=== PATIENT | female | born 1960 | race Caucasian/White ===

== ENCOUNTER → 2018-10-27 | Day surgery (SDC) | payer OTHER ==
[2018-10-25 14:52] VITALS: BMI 29.9
[~2018-10-27] MED LIST: LACTATED RINGERS 1,000 ML IV SCH; LIDOCAINE 1% 20 ML VIAL (10MG/ML) FOR IV START INTRADERMA PRN; MIDAZOLAM 2 MG/2 ML VIAL ONE; PROPOFOL 10 MG/ML 20 ML VIAL IV ONE; fentaNYL (PF) 50 MCG/ML 2 ML AMP ONE
[2018-10-27 10:17] VITALS: TEMP 98
--- NOTE | 2018-10-27 10:49 | P.PCN ---
Date of Procedure: 10/27/18 Procedure(s) Performed: BRIEF HISTORY: Patient is a 57-year-old pleasant white female scheduled for an elective colonoscopy as a part of value should of intermittent rectal bleeding for the last 1 month duration. PROCEDURE PERFORMED: Colonoscopy With biopsy PREOPERATIVE DIAGNOSIS: intermittent rectal bleeding for 1 month durationIV sedation per Anesthesia. PROCEDURE: After informed consent was obtained, the patient, was brought into the endoscopy unit. IV sedation was administered by Anesthesia under continuous monitoring. Digital rectal examination was normal. Initially the Olympus CF- 160 flexible video colonoscope was then inserted in the rectum, gradually advanced into the cecum without any difficulty. Careful examination was performed as the scope was gradually being withdrawn. Ileocecal valve and the appendiceal orifice were visualized and appeared normal. Prep was excellent. Mucosa of the cecum, ascending colon, transverse colon, descending colon, sigmoid colon, appeared normal. In the proximal rectum at 12 cm from the anal verge there was a semicircumferential ulcerated mass identified and multiple biopsies were done from this area. Retroflexion was performed in the rectum and no lesions were seen. The patient tolerated the procedure well. IMPRESSION: Semicircumferential ulcerated mass in the proximal rectum at 12 cm from the anal verge status post multiple biopsies Scattered sigmoid diverticulosis RECOMMENDATIONS: Findings of this examination were discussed with the patient as well as a family. She was advised to follow with the biopsy results. She'll be scheduled for CT of the abdomen and pelvis and she'll be seen in the office in 3 -4 days.
[2018-10-27 11:29] VITALS: BP 120/81; PULSE 76; RESP 18
== END ==
LOC: ORWHC2ENDO 09:22
PROVIDERS: ATTEND Internal Medicine Gastroenterology
DX: C20 Malignant neoplasm of rectum (principal); K57.30 Diverticulosis of large intestine without perforation or abscess without bleeding; F32.9 Major depressive disorder, single episode, unspecified; G89.29 Other chronic pain; F17.200 Nicotine dependence, unspecified, uncomplicated; Z79.899 Other long term (current) drug therapy; Z88.2 Allergy status to sulfonamides; Z91.040 Latex allergy status
CPT/HCPCS: 88305; 45380; J2250; J3010; J2704

== ENCOUNTER → 2018-10-30 | Outpatient (CLI) | payer OTHER ==
--- NOTE | 2018-11-01 10:46 | PE ---
Nuclear medicine PET/CT HISTORY: Colorectal carcinoma, malignant tumor rectum, initial Patient received 12.4 mCi F-18 FDG intravenously on protocol, delayed scanning performed from the [facility] base to the mid thighs. Localization and attenuation correction CT scan was also performed. No comparisons Neck and CHEST: There is no evident adenopathy. There is a focus of hypermetabolic uptake within the left parotid gland approximately 1 cm in short axis, SUV value is 6.6. There is a prevascular node in the mediastinum present with a 6 short axis measurement of 8 mm. Retrocaval pretracheal node shows a cyst or axis measurement of 9 mm. No suspicious hypermetabolic uptake. Left upper lobe lung nodule s hows associated hypermetabolic uptake, SUV is 2.4, lesion measures only approximately 9 mm in greates t dimension. Subcentimeter subpleural density on axial image 73 right upper lobe laterally is indeter minate. No pleural or pericardial effusion. Within the posterior aspect of the liver right lobe inferiorly there is a focus of hypermetabolic upt puma, SUV is 10.4. Within the rectosigmoid colon there is a soft tissue mass, there is associated hype rmetabolic uptake, SUV is 26. No evident adenopathy. No ascites. Osseous structures are within normal limits. IMPRESSION: Findings compatible with patient's history of colorectal carcinoma. Findings may represen t metastatic disease to the liver. Indeterminate left salivary gland mass. Indeterminate pulmonary no dule shows increased uptake.
== END ==
LOC: RADPETMAIN 16:20
PROVIDERS: ATTEND Internal Medicine Gastroenterology
DX: C20 Malignant neoplasm of rectum (principal)
CPT/HCPCS: 78815; A9552

== ENCOUNTER → 2018-11-03 | Outpatient (CLI) | payer OTHER ==
--- NOTE | 2018-11-04 12:07 | MR ---
MR liver with and without contrast HISTORY: Malignant neoplasm of rectum, abnormal PET/CT Multiplanar multisequence and postcontrast images through liver following 10 cc Gadavist IV Relation nuclear medicine PET/CT 10/30/2018 Focus of abnormal activity seen within the right lobe of the liver on PET CT shows corresponding abno rmal signal inferiorly within the right lobe, peripheral enhancement is present following contrast ad ministration with central low signal possibly due to necrosis. The lesion measures approximately 3.2 x 2.8 x 2.3 cm. No additional lesions are identified. There is no evident adenopathy. No ascites. Olga g bases are clear. Aorta shows normal caliber. Visualized portions of the kidneys and adrenal glands, pancreas and splee n are unremarkable. Gallbladder shows no stone. IMPRESSION: Findings may represent metastatic focus within the right lobe of the liver. The lesion wo uld be amenable to percutaneous biopsy.
== END | disposition home or self-care (01) ==
LOC: RADMRIMAIN 20:41
PROVIDERS: ATTEND Internal Medicine Hematology & Oncology
DX: C20 Malignant neoplasm of rectum (principal)
CPT/HCPCS: 74183; A9585

== ENCOUNTER → 2018-11-05 | Outpatient (CLI) | payer OTHER ==
--- NOTE | 2018-11-07 05:59 | MR ---
MR scan of the pelvis. History rectal cancer. Comparison none. TECHNIQUE: Multiplanar multiecho imaging of the pelvis was performed without and subsequently with intravenous c ontrast. The contrast was gadolinium 8.5 mL. FINDINGS: There is a 5.6 x 3.5 x 3.4 cm enhancing mass involving the colon in the posterior pelvis at the recto sigmoid junction. Mass is somewhat circumferential. The contrast images show numerous perirectal enla rged lymph nodes with enhancement. These measure up to 12 x 9 mm. There is no free fluid in the pelvi s. Bladder distends smoothly. Uterus is anteverted. I see no bowel obstruction. Uterus is retroverted. I see no bony destructive process. There is no ing uinal hernia or adenopathy. IMPRESSION: Large mass at the rectosigmoid junction consistent with primary tumor. Numerous enlarged perirectal l ymph nodes with enhancement suggestive of metastatic disease.
== END ==
LOC: RADMRIMAIN 20:01
PROVIDERS: ATTEND Internal Medicine Hematology & Oncology
DX: C20 Malignant neoplasm of rectum (principal)
CPT/HCPCS: 72197; A9585

== ENCOUNTER 2018-11-09 09:04 | Day surgery (SDC) | payer OTHER ==
[2018-11-09 09:37] VITALS: RESP 16; TEMP 98.1
[2018-11-09 09:37] LABS: Mean Platelet Volume 6.6; Platelet Count 347 k/uL (150-450)
[2018-11-09] MEDS ORDERED: ALPRAZolam 0.5 MG TAB PO STA (09:37)
[2018-11-09 09:45] LABS: Prothrombin Time 10.5 sec (9.0-12.0)
[2018-11-09] MEDS ORDERED: HYDROmorphone 1 MG/ML 1 ML SYRINGE IVP STA (09:54)
[2018-11-09 12:11] VITALS: PULSE 78
--- NOTE | 2018-11-09 12:13 | US ---
EXAMINATION TYPE: US biopsy liver DATE OF EXAM: 11/09/2018 COMPARISON: NONE HISTORY: Hepatic mass Findings: The procedure was explained to the patient. The risks, complications, benefits, and alternatives wer e discussed and any questions were answered. Informed consent was obtained. Patient was placed late ral position on the ultrasound table and prepped and draped in the usual sterile fashion. All elements of maximal barrier and sterile technique utilized. Utilizing CT guidance, an 18 gauge core biopsy needle access into the right lobe of the liver was ac hieved and a two 18 gauge core samples were obtained. The patient was stable throughout the procedur e and remained stable upon discharge. IMPRESSION: 1. Successful 18 gauge core biopsy of the liver.
[2018-11-09 13:18] VITALS: BP 117/72
== END 2018-11-09 14:32 | disposition home or self-care (01) ==
LOC: RADPROMAIN 09:04
PROVIDERS: ATTEND Internal Medicine Hematology & Oncology
DX: C78.7 Secondary malignant neoplasm of liver and intrahepatic bile duct (principal); C20 Malignant neoplasm of rectum; Z88.2 Allergy status to sulfonamides
CPT/HCPCS: 85049; 85610; 88342; 88307; 88341; 36415; 47000; 76942; J1170

== ENCOUNTER 2018-11-26 06:33 | Day surgery (SDC) | payer OTHER ==
[2018-11-23 08:45] VITALS: BMI 30.7
[~2018-11-26 06:33] MED LIST changes: +DEXAMETHASONE SOD PHOSPHATE 10 MG/ML 1 ML VIAL IV ONE; +HEPARIN SODIUM,PORCINE 5,000 UNIT/ML 1 ML VIAL SQ ONE; -LIDOCAINE 1% 20 ML VIAL (10MG/ML) FOR IV START INTRADERMA PRN; +MIDAZOLAM 2 MG/2 ML VIAL IV PRN; -MIDAZOLAM 2 MG/2 ML VIAL ONE; +ONDANSETRON 4 MG/2 ML VIAL IVP ONE; -PROPOFOL 10 MG/ML 20 ML VIAL IV ONE; +Pre Op ABX Message 1 EACH MISC MISCELLANE ONE; +SCOPOLAMINE 1.5MG/72HR PATCH TRANSDERM ONE; -fentaNYL (PF) 50 MCG/ML 2 ML AMP ONE
[2018-11-26] MEDS ORDERED: LIDOCAINE 1% 20 ML VIAL (10MG/ML) FOR IV START INTRADERMA ONE (07:14)
[2018-11-26] MEDS ORDERED: ceFAZolin 2 GM in SODIUM CHLORIDE 0.9% 100 ML IVPB ONE (07:48)
[2018-11-26] MEDS ORDERED: HEPARIN SODIUM,PORCINE 100 UNIT/ML 5 ML VIAL IV ONE ×3 (07:57→08:38)
[2018-11-26] MEDS ORDERED: LIDOCAINE (PF) 10 MG/ML 2 ML VIAL SQ ONE ×2 (07:58→08:29)
[2018-11-26] MEDS ORDERED: ceFAZolin IN SWFI 2 GM/20 ML SYRINGE IVP ONE (08:00)
[2018-11-26] MEDS ORDERED: PROPOFOL 10 MG/ML 20 ML VIAL IV ONE (08:04)
[2018-11-26] MEDS ORDERED: MIDAZOLAM 2 MG/2 ML VIAL ONE (08:04)
[2018-11-26] MEDS ORDERED: LIDOCAINE 1% INJ 10MG/ML (20 ML MDV) ONE (08:04)
[2018-11-26] MEDS ORDERED: fentaNYL (PF) 50 MCG/ML 2 ML AMP ONE (08:04)
[2018-11-26] MEDS ORDERED: SODIUM CHLORIDE 0.9% 100 ML with ceFAZolin 2,000 MG IV ONE ×2 (08:25)
[2018-11-26] MEDS ORDERED: LIDOCAINE 1% INJ 10MG/ML (20 ML MDV) SQ ONE (08:44)
[2018-11-26] MEDS ORDERED: LACTATED RINGERS 1,000 ML IV ONE (08:49)
[2018-11-26 09:05] VITALS: TEMP 98.1
[2018-11-26] MEDS: HYDROmorphone 0.5 MG/0.5 ML SYRINGE IVP PRN ×2 (09:20→09:26)
[2018-11-26] MEDS ORDERED: HYDROcodone/APAP 5-325MG 1 EACH TAB PO PRN (09:30)
[2018-11-26] MEDS ORDERED: NALOXONE 0.4 MG/ML 1 ML VIAL IV PRN (09:30)
--- NOTE | 2018-11-26 09:36 | P.OP ---
Date of Procedure: 11/26/18 Procedure(s) Performed: PREOPERATIVE DIAGNOSIS: Rectal cancer POSTOPERATIVE DIAGNOSIS: Same PROCEDURE: Port-A-Cath placement SURGEON: Stacia EBL: Minimal ANESTHESIA: gen COMPLICATIONS: None OPERATIVE PROCEDURE: Patient was brought and placed on the operative table in the supine position. The patient was sedated per anesthesia that time. The chest and neck were prepped and draped in usual sterile fashion. The ultrasound probe was used to identify the location of the right internal jugular vein. The skin was localized with lidocaine. The Seldinger needle was advanced into the IJ under ultrasound guidance. The wire was advanced through the needle under fluoroscopic guidance into the superior vena cava. A port pocket was created in the right infraclavicular location. The catheter was tunneled from the wire entrance site to the port pocket. The port was then connected to the catheter. The dilator introducer was threaded over the guidewire. The guidewire and dilator were then removed. The catheter was advanced through the introducer and introducer was then removed. The tip was seen to be in the right atrial junction. Port was flushed with both saline and a Hep-Lock solution. There was good flow both in and out of the port. The port was sutured in underlying tissues using 3-0 silk sutures. The subcutaneous tissues were reapproximated using 3-0 Vicryl sutures and the skin at both locations using 4-0 Monocryl sutures. Skin glue and sterile dressings then applied. DISPOSITION: Stable to recovery room
--- NOTE | 2018-11-26 10:06 | XR ---
EXAMINATION TYPE: XR chest 1V portable DATE OF EXAM: 11/26/2018 COMPARISON: NONE HISTORY: Line placement, Rectal carcinoma TECHNIQUE: Single frontal view of the chest is obtained. FINDINGS: Right-sided Port-A-Cath is present via jugular approach the central catheter courses to th e level of the cavoatrial junction. Patchy basilar atelectatic changes are present. No evident pneumo thorax. IMPRESSION: No evident complication status post central venous catheter placement
[2018-11-26 10:08] VITALS: RESP 20
--- NOTE | 2018-11-26 10:29 | FL ---
Fluoroscopy HISTORY: Port-A-Cath insertion 3 seconds fluoroscopy time supplied to the referring clinician. 1 intraoperative C-arm images docume nt the procedure. See dictated report from general surgery.
[2018-11-26 10:54] VITALS: BP 115/76; PULSE 77
== END 2018-11-26 11:10 | disposition home or self-care (01) ==
LOC: OR 06:33
PROVIDERS: ATTEND Surgery
DX: C20 Malignant neoplasm of rectum (principal); F17.210 Nicotine dependence, cigarettes, uncomplicated; Z87.19 Personal history of other diseases of the digestive system; Z79.899 Other long term (current) drug therapy; Z88.2 Allergy status to sulfonamides; Z91.040 Latex allergy status
CPT/HCPCS: 77001; 71045; 36561; C1788; J2250; J1644; J1642; J1100; J2405; J2001; J3010; J0690; J2704; J1170

== ENCOUNTER → 2019-01-18 | Outpatient (CLI) | payer OTHER ==
--- NOTE | 2019-01-19 08:03 | MR ---
EXAMINATION TYPE: MR liver wo/w con DATE OF EXAM: 01/18/2019 COMPARISON: MRI liver November 03, 2018. HISTORY: Rectal ca, liver metastatic lesion, F/U to chemo CONTRAST: Standard multiplanar, multisequence MRI departmental protocol utilizing 7.5 mL intravenous Gadavist g adolinium contrast. FINDINGS: Liver: There is marked interval improvement or diminished size of posterior segment right hepatic lob e rim-enhancing Couinaud segment 6 mass consistent with positive treatment response, now measuring 1. 5 cm long axis postcontrast series 801 image 179 versus roughly 3.3 cm long axis prior study image 18 6 series 801. No new suspicious solid or cystic masses are evident. Liver remains normal in size. Other: Lung bases remain clear. Debris filled stomach is noted. Gallbladder, pancreas, and spleen are normal in size. Slight thickening to the left adrenal gland is consistent with benign hyperplasia as there is signal dropout. Persistent 1.0 cm simple appearing cyst medially midpole of the left kidney coronal image 29. No suspicious small or large bowel dilatation. No abdominal ascites. No suspicious abdominal adenopathy. Visualized osseous structures are intact. IMPRESSION: Positive partial treatment response to single hepatic metastatic focus. No new masses are evident.
== END | disposition home or self-care (01) ==
LOC: RADMRIMAIN 16:15
PROVIDERS: ATTEND Internal Medicine Hematology & Oncology
DX: C20 Malignant neoplasm of rectum (principal); R16.0 Hepatomegaly, not elsewhere classified; C78.7 Secondary malignant neoplasm of liver and intrahepatic bile duct
CPT/HCPCS: 74183; A9585

== ENCOUNTER → 2019-02-15 | Outpatient (CLI) | payer OTHER ==
[2019-02-15 14:26] LABS: Blood Urea Nitrogen 9 mg/dL (7-17)
--- NOTE | 2019-02-15 14:59 | CT ---
EXAMINATION TYPE: CT chest w con DATE OF EXAM: 02/15/2019 COMPARISON: PET/CT October 30, 2018 HISTORY: History of rectal cancer metastatic to liver with lung nodules. CT DLP: 614 mGycm. Automated Exposure Control for Dose Reduction was Utilized. TECHNIQUE: CT scan of the thorax is performed following with IV Contrast, patient injected with 100 mL of Isovue 300. FINDINGS: LUNGS: Residual 4 x 4 mm anterior left upper lobe nodule axial image 13 improved from PET/CT. There i s 3 mm peripheral left lower lobe nodule axial image 45 likely stable from PET/CT axial image 113. No definitive new nodules or masses. No pleural effusion or pneumothorax. MEDIASTINUM: There is stable slightly enlarged paracarinal lymph node measuring 1.4 x 1.1 cm axial im age 21. Prominent but subcentimeter bilateral hilar lymph nodes are redemonstrated as well as promin ent but subcentimeter prevascular and paratracheal lymph nodes. No cardiomegaly or pericardial effusi on is seen. New right internal jugular Mediport catheter terminates in SVC. OTHER: Vague hypodense metastatic lesion liver posterior segment right hepatic lobe likely image 62me asures 6 mm felt improved from CT axial image 136 though it is less well seen on CT versus PET images . IMPRESSION: Suspect positive treatment response to cavitary left upper lobe pulmonary nodule and post erior right hepatic lobe liver lesion. No new mass or adenopathy clearly identified.
== END | disposition home or self-care (01) ==
LOC: RADPROMAIN 13:46
PROVIDERS: ATTEND Internal Medicine Hematology & Oncology
DX: C20 Malignant neoplasm of rectum (principal); R91.1 Solitary pulmonary nodule; Z03.89 Encounter for observation for other suspected diseases and conditions ruled out; Z88.2 Allergy status to sulfonamides
CPT/HCPCS: 82565; 84520; 71260; 36415; Q9967

== ENCOUNTER → 2019-06-08 | Outpatient (CLI) | payer OTHER ==
[2019-06-08 10:49] LABS: African American GFR (CKD) >90 (>60 ml/min/1.73 sqM); Blood Urea Nitrogen 10 mg/dL (7-17); Non-African American GFR(CKD) 80 (>60 ml/min/1.73 sqM)
--- NOTE | 2019-06-08 13:33 | CT ---
EXAMINATION TYPE: CT chest w con DATE OF EXAM: 06/08/2019 COMPARISON: Chest CT February 15, 2019. PET/CT October 30, 2018. HISTORY: Malignant neoplasm of rectum CT DLP: 390.3 mGycm. Automated Exposure Control for Dose Reduction was Utilized. TECHNIQUE: CT scan of the thorax is performed following with IV Contrast, patient injected with 100 mL of Isovue 300. FINDINGS: LUNGS: Fairly stable anterior 4 mm left upper lobe nodule axial image 15 comparing with most recent C T. Previously visualized 3 mm peripheral left basilar nodule is not as well-seen on current study. Th ere is linear scarring superior to this redemonstrated near the fissure. Dependent atelectasis in the lower lobes, right greater than left. No new nodules or masses. No pleural effusion or pneumothorax. Background mild emphysematous change in the upper lobes is again seen. MEDIASTINUM: There are no new greater than 1 cm hilar or mediastinal lymph nodes. Stable prominent jana rderline enlarged pericarinal lymph node axial image 21. Stable prominent borderline enlarged prevas cular lymph node axial image [address] No cardiomegaly or pericardial effusion is seen. Enlarged main pulmonary artery redemonstrated, CT findings suggestive of underlying pulmonary hypert ension. OTHER: Stable right internal jugular Mediport catheter. The vague hypodense hypermetabolic lesion pos terior right hepatic lobe on PET/CT is less well-seen on current study. No new intrahepatic lesions a re clearly evident. IMPRESSION: No significant interval change or progression from most recent chest CT. Stable small ant erior left upper lobe nodule. No new nodules are evident.
--- NOTE | 2019-06-08 16:09 | MR ---
MR abdomen with and without contrast HISTORY: Rectal carcinoma Multiplanar multisequence and postcontrast images obtained through the abdomen following 8 cc Gadavis t IV. Correlation to prior MR liver 01/18/2019 Liver signal is stable to improved, the previously identified focus of ring enhancement described in prior report has diminished in size is now subcentimeter. It no additional abnormal foci of enhanceme nt are present. Subcentimeter T2 bright foci likely represent hepatic cysts and are stable. Lung base s are clear. There is no ascites. No evident adenopathy. Adrenal glands and kidneys are stable. Probable cortical cyst noted again within left kidney. Spleen is unchanged. Aorta shows normal caliber. Gallbladder is within normal limits. Pancreas is normal. IMPRESSION: Improvement in the previously identified metastatic focus within the right lobe of the [place].
== END | disposition home or self-care (01) ==
LOC: RADMRIMAIN 10:02
PROVIDERS: ATTEND Internal Medicine Hematology & Oncology
DX: Z03.89 Encounter for observation for other suspected diseases and conditions ruled out (principal); C22.8 Malignant neoplasm of liver, primary, unspecified as to type; C20 Malignant neoplasm of rectum; R91.1 Solitary pulmonary nodule
CPT/HCPCS: 82565; 84520; 71260; 36415; 74183; A9585; Q9967

== ENCOUNTER 2019-07-23 16:24 | Inpatient (IN) | payer OTHER ==
--- NOTE | 2019-07-23 17:16 | ED ---
General Adult HPI - General Chief complaint: Skin/Abscess/Foreign Body Stated complaint: Post-op complications Time Seen by Provider: 07/23/19 16:34 Source: patient Mode of arrival: ambulatory Limitations: no limitations - History of Present Illness Initial comments: Patient is a 58-year-old female with history of rectal cancer with metastatic to the liver is presenting to emergency with a chief complaint of ileostomy malfunction. Patient reports she had an ileostomy placed [address] bledsoe. Patient the ileostomy workable worked well however 3 days ago she reports her skin at the ileostomy site was becoming more irritated. She states that in the last 3 days the intestinal contents is not draining into the bag. She states that she is supposed replace the ileostomy bags every 3 days and the last when she changed was today. Patient denies any nausea vomiting. Patient denies any night sweats fevers or chills. Patient also reports she is running out of supplies. - Related Data Home Medications Medication Instructions Recorded Confirmed Cyclobenzaprine [Flexeril] 10 mg PO HS 10/25/18 11/23/18 DULoxetine HCL [Cymbalta] 60 mg PO HS 10/25/18 11/23/18 Previous Rx's Medication Instructions Recorded Hydrocodone/Acetaminophen [[place] 1 tab PO Q6HR PRN 3 Days #5 tab 11/26/18 5-325] Allergies Allergy/AdvReac Type Severity Reaction Status Date / Time Sulfa (Sulfonamide Allergy Rash/Hives Verified 07/23/19 16:28 Antibiotics) Latex, Natural Rubber AdvReac Rash/Hives Verified 07/23/19 16:28 Review of Systems ROS Statement: Those systems with pertinent positive or pertinent negative responses have been documented in the HPI. ROS Other: All systems not noted in ROS Statement are negative. Past Medical History Past Medical History: Cancer, Fibromyalgia, Hypertension Additional Past Medical History / Comment(s): NO RX FOR HTN -" on and off high bp", CONSTIPATION/diarrhea, HAS BEEN HAVING BLOOD IN STOOL OFF AND ON FOR PAST MONTH, hx ulcer, IBS, rectal cancer and liver-recent dx, History of Any Multi-Drug Resistant Organisms: None Reported Past Surgical History: Tonsillectomy Additional Past Surgical History / Comment(s): oral surgery, colonoscopies x 6- 8, ileostomy, rectal surgery Past Anesthesia/Blood Transfusion Reactions: No Reported Reaction Past Psychological History: No Psychological Hx Reported Smoking Status: Former smoker Past Alcohol Use History: None Reported Past Drug Use History: None Reported - Past Family History Father Family Medical History: Cancer Additional Family Medical History / Comment(s): skin Mother Family Medical History: Deep Vein Thrombosis (DVT) General Exam Limitations: no limitations Course Vital Signs 07/23/19 16:24 Temperature 98.2 F Pulse Rate 107 H Respiratory 18 Rate Blood Pressure 128/87 O2 Sat by Pulse 100 Oximetry Medical Decision Making - Medical Decision Making Patient is a 58-year-old female with history of rectal cancer with metastasis to the liver is presenting to the emergency department with a chief complaint of ileostomy malfunction. Physical examination the intestinal contents a draining out of the ileostomy bag. There appears to be skin excoriations surrounding the abrasion of the ileostomy site. Patient was examined the fever chills. Dr. Márquez also examined the patient and is in agreement with the treatment plan. Patient will be admitted for further medical management and wound care. Admitting physician is Dr. Apodaca. Disposition Clinical Impression: Ileostomy dysfunction Disposition: ADMITTED IP TO THIS HOSP Condition: Stable Instructions (If sedation given, give patient instructions): Ileostomy Care (ED) Additional Instructions: Patient will be admitted Is patient prescribed a controlled substance at d/c from ED?: No Referrals: Amador Torres MD [Primary Care Provider] - 1-2 days Time of Disposition: 18:36
[2019-07-23] MEDS ORDERED: ACETAMINOPHEN TAB 325 MG TAB PO PRN (18:38)
[2019-07-23] MEDS ORDERED: NALOXONE 0.4 MG/ML 1 ML VIAL IV PRN (18:38)
[2019-07-23] MEDS ORDERED: ONDANSETRON 4 MG/2 ML VIAL IVP PRN (18:38)
[2019-07-23] MEDS ORDERED: MORPHINE SULFATE 4 MG/ML SYRINGE IV PRN (18:38)
[2019-07-23] MEDS ORDERED: IBUPROFEN 400 MG TAB PO PRN (18:38)
[2019-07-23] MEDS: SODIUM CHLORIDE 0.9% 1,000 ML IV SCH (21:29)
[2019-07-23] MEDS: LOPERAMIDE 2 MG CAP PO SCH (21:38)
[2019-07-23] MEDS: GABAPENTIN 300 MG CAP PO SCH (21:38)
[2019-07-23] MEDS: METHOCARBAMOL 500 MG TAB PO SCH (21:39)
[2019-07-24] MEDS: METHOCARBAMOL 500 MG TAB PO SCH ×4 (06:52→21:24)
[2019-07-24] MEDS: GABAPENTIN 300 MG CAP PO SCH ×4 (06:52→21:24)
[2019-07-24] MEDS: LOPERAMIDE 2 MG CAP PO SCH ×2 (06:52→21:24)
[2019-07-24] MEDS: SODIUM CHLORIDE 0.9% 1,000 ML IV SCH ×2 (08:39→21:23)
[2019-07-24] MEDS: ENOXAPARIN 40 MG/0.4 ML SYRINGE SQ SCH (14:13)
--- NOTE | 2019-07-24 17:22 | P.HPIM ---
History of Present Illness H&P Date: 07/24/19 Chief Complaint: Ileostomy bag not working well History of presenting complaint: This is a pleasant 58-year-old patient of Dr. Amador Sun. Patient has a diagnosis of rectal cancer with metastasis to liver. She has followed up with Dr. Baer the oncologist. Patient has received in the past several cycles of chemotherapy and radiation treatment. Patient recently was 10 days ago underwent a ileostomy creation at [facility]. Getting the same procedure was exposed to liver no evidence of metastasis was found. She tells me there is a questionable [address] Baer was not sure discussed with metastatic disease. Otherwise she'll return not available the same. Appetite is fair. Patient's last 3 days noticed that ileostomy was not working fine and is an area of redness around the ostomy site. She had called the surgeon at [facility] and and they told her to to come to the ER. The l nurses here were able to put the ostomy back on. It has been functioning since then. This is a area of redness from the same was concern at that is from the normal healing. Ostomy nurse is not available today. Patient is put into observation. No fever no chills. No local pain. Review of systems: GEN.: None EYES: None HEENT: None NECK: None RESPIRATORY: None CARDIOVASCULAR: None GASTROINTESTINAL: [As above GENITOURINARY: None MUSCULOSKELETAL: None LYMPHATICS: None HEMATOLOGICAL: None PSYCHIATRY: None NEUROLOGICAL: None Past medical history to include: History of hypertension or taking medications anymore, rectal cancer with metastasis to liver treated Social history: Patient smoked about half a pack a day for over 30 years. Has not smoked for last 11 days. Lives alone. Friend helps out. No alcohol. Physical examination: VITAL SIGNS: 98.2, 107, 18, 128/87, 100% room air GENERAL: BMI 31 sitting up in a chair comfortable. EYES: Pupils equal. Conjunctiva normal. HEENT: External appearance of nose and ears normal, oral cavity grossly normal. NECK: JVD not raised; masses not palpable. HEART: First and second heart sounds are normal; no edema. LUNGS: Respiratory rate normal; clear to auscultation. ABDOMEN: Soft, nontender, liver spleen not palpable, no masses palpable ileostomy bag in place. Brown stool in the back. PSYCH: Alert and oriented x3; mood and affect normal. NEUROLOGICAL: Cranial nerves grossly intact; no facial asymmetry, power and sensation grossly intact. LYMPHATICS: No lymph nodes palpable in the axilla and neck INVESTIGATIONS, reviewed in the clinical context: Patient has a picture of the ostomy site without that, dressing in her phone. Assessment: -Malfunction of the ileostomy now improved -We'll have the ostomy nurse look at the same. And decided is any element infection was is his normal healing process since the surgery. -Chronic nicotine dependence patient cigarette smoker -Obesity BMI 31 -Rectal and metastatic liver cancer patient status post chemotherapy and radiation treatment. Plan: Patient ileostomy is currently working. Ostomy nurse will be contacted from the morning. Told the patient to get in touch with the surgeon at [facility] and couldn't find a way to send her pictures in the I phoned and send it to to her surgeon.. Care was discussed in detail questions were answered home medications resumed. - Past Medical History Past Medical History: Cancer, Fibromyalgia, Hypertension Additional Past Medical History / Comment(s): NO RX FOR HTN -" on and off high bp", CONSTIPATION/diarrhea, HAS BEEN HAVING BLOOD IN STOOL OFF AND ON FOR PAST MONTH, hx ulcer, IBS, rectal cancer and liver-recent dx, History of Any Multi-Drug Resistant Organisms: None Reported Past Surgical History: Tonsillectomy Additional Past Surgical History / Comment(s): oral surgery, colonoscopies x 6- 8, ileostomy, rectal surgery Past Anesthesia/Blood Transfusion Reactions: No Reported Reaction Past Psychological History: No Psychological Hx Reported Additional Psychological History / Comment(s): denies Smoking Status: Former smoker Past Alcohol Use History: None Reported Additional Past Alcohol Use History / Comment(s): SMOKES < 1/2 PPD, SINCE AGE 13 Past Drug Use History: None Reported - Past Family History Father Family Medical History: Cancer Additional Family Medical History / Comment(s): skin Mother Family Medical History: Deep Vein Thrombosis (DVT) Medications and Allergies Home Medications Medication Instructions Recorded Confirmed Type Butalb/APAP/Caff 50-325-40Mg 1 tab PO Q8H PRN 07/23/19 07/23/19 History [Fioricet 50-325-40] Gabapentin 600 mg PO QID 07/23/19 07/23/19 History Ibuprofen [Motrin Ib] 600 mg PO Q6H PRN 07/23/19 07/23/19 History Loperamide [Imodium] 2 mg PO BID 07/23/19 07/23/19 History Methocarbamol [Robaxin] 500 mg PO QID 07/23/19 07/23/19 History Muscle Relaxer(Unknown) 1 tab PO DIRECTED 07/23/19 07/23/19 History oxyCODONE HCL [OxyIR] 5 mg PO Q4H PRN 07/23/19 07/23/19 History Allergies Allergy/AdvReac Type Severity Reaction Status Date / Time Sulfa (Sulfonamide Allergy Rash/Hives Verified 07/23/19 18:56 Antibiotics) Latex, Natural Rubber AdvReac Rash/Hives Verified 07/23/19 18:56 Physical Exam Vitals: Vital Signs Temp Pulse Pulse Resp BP BP Pulse Ox 07/24/19 08:00 98.2 F 79 16 98/62 96 07/24/19 04:00 78 16 07/24/19 03:52 98.1 F 78 16 101/57 07/23/19 23:20 16 07/23/19 19:20 16 07/23/19 19:13 90 16 130/78 98 07/23/19 16:24 98.2 F 107 H 18 128/87 100 Intake and Output 07/23/19 07/24/19 07/24/19 23:59 06:59 14:59 Intake Total Output Total Balance Intake: Oral Output: Gastric Drainage Other: Voiding Method Toilet # Voids Weight Thrombosis Risk Factor Assmnt - Choose All That Apply Each Factor Represents 1 point: Age 41-60 years, History of prior major surgery (<1month) Other Risk Factors: Yes Each Risk Factor Represents 2 Points: Major surgery Thrombosis Risk Factor Assessment Total Risk Factor Score: 4 Thrombosis Risk Factor Assessment Level: Moderate Risk
[2019-07-25] VITALS: RESP 18
[2019-07-25] MEDS: METHOCARBAMOL 500 MG TAB PO SCH (06:31)
[2019-07-25] MEDS: GABAPENTIN 300 MG CAP PO SCH (06:31)
[2019-07-25 08:03] VITALS: BP 124/66; PULSE 85; TEMP 98.1
[2019-07-25] MEDS: LOPERAMIDE 2 MG CAP PO SCH (08:43)
[2019-07-25] MEDS: ENOXAPARIN 40 MG/0.4 ML SYRINGE SQ SCH (08:43)
--- NOTE | 2019-07-25 22:37 | P.DS ---
Providers Date of admission: 07/25/19 09:53 Expected date of discharge: 07/25/19 Attending physician: Johnson Apodaca Primary care physician: Amador [facility] Course: Chief Complaint: Ileostomy bag not working well Hospital course: This is a pleasant 58-year-old patient of Dr. Amador Sun. Patient has a diagnosis of rectal cancer with metastasis to liver. She has followed up with Dr. Baer the oncologist. Patient has received in the past several cycles of chemotherapy and radiation treatment. Patient recently was 10 days ago underwent a ileostomy creation at [facility]. Getting the same proc edure was exposed to liver no evidence of metastasis was found. She tells me there is a questionable [address] Baer was not sure discussed with metastatic disease. Otherwise she'll return not available the same. Appetite is fair. Patient's last 3 days noticed that ileostomy was not working fine and is an area of redness around the ostomy site. She had called the surgeon at [facility] and and they told her to to come to the ER. The l nurses here were able to put the ostomy back on. It has been functioning since then. This is a area of redness from the same was concern at that is from the normal healing. Ostomy nurse is not available today. Patient is put into observation. No fever no chills. No local pain. Today-patient was seen by the ostomy nurse. Supplies were given. She advised patient to follow-up with her surgeon at [facility]. Otherwise ostomy is working well. Patient is tolerating a diet. Physical examination: VITAL SIGNS: 98.1,, 85, 18, 124/66, 93% room air GENERAL: Sitting upon a chair, comfortable. EYES: Pupils equal. Conjunctiva normal. HEENT: External appearance of nose and ears normal, oral cavity grossly normal. NECK: JVD not raised; masses not palpable. HEART: First and second heart sounds are normal; no edema. LUNGS: Respiratory rate normal; clear to auscultation. ABDOMEN: Soft, nontender, liver spleen not palpable, no masses palpable ileostomy bag in place. Brown stool in the back. PSYCH: Alert and oriented x3; mood and affect normal. INVESTIGATIONS, reviewed in the clinical context: Patient has a picture of the ostomy site without that, dressing in her phone. Assessment: -Malfunction of the ileostomy due to supplies now corrected and functioning -Chronic nicotine dependence patient cigarette smoker -Obesity BMI 31 -Rectal and metastatic liver cancer patient status post chemotherapy and radiation treatment. Disposition: Home Patient is to follow-up with her oncologist and also to follow with the surgeon at [facility]. Supplies were given an additional directions were given. For discharge by the nurse and the ostomy nurse. - Patient Condition at Discharge: Stable Plan - Discharge Summary Discharge Rx Participant: No New Discharge Prescriptions: New Acetaminophen Tab [Tylenol] 650 mg PO Q6HR PRN tab PRN Reason: Mild Pain Or Fever > 100.5 Continue Loperamide [Imodium] 2 mg PO BID Ibuprofen [Motrin Ib] 600 mg PO Q6H PRN PRN Reason: Pain Butalb/APAP/Caff 50-325-40Mg [Fioricet 50-325-40] 1 tab PO Q8H PRN PRN Reason: Migraine Headache oxyCODONE HCL [OxyIR] 5 mg PO Q4H PRN PRN Reason: Pain Gabapentin 600 mg PO QID Muscle Relaxer(Unknown) 1 tab PO DIRECTED Methocarbamol [Robaxin] 500 mg PO QID No Action Enoxaparin [Lovenox] 40 mg SQ DAILY Discharge Medication List Butalb/APAP/Caff 50-325-40Mg [Fioricet 50-325-40] 1 tab PO Q8H PRN 07/23/19 [History] Gabapentin 600 mg PO QID 07/23/19 [History] Ibuprofen [Motrin Ib] 600 mg PO Q6H PRN 07/23/19 [History] Loperamide [Imodium] 2 mg PO BID 07/23/19 [History] Methocarbamol [Robaxin] 500 mg PO QID 07/23/19 [History] Muscle Relaxer(Unknown) 1 tab PO DIRECTED 07/23/19 [History] oxyCODONE HCL [OxyIR] 5 mg PO Q4H PRN 07/23/19 [History] Acetaminophen Tab [Tylenol] 650 mg PO Q6HR PRN tab 07/25/19 [Rx] Enoxaparin [Lovenox] 40 mg SQ DAILY 07/25/19 [History] Follow up Appointment(s)/Referral(s): [facility] [NON-STAFF] - 1-2 Days [facility] [NON-STAFF] - As Needed ([phone] for ostomy supply questions.) Amador Torres MD [Primary Care Provider] - 1-2 days Patient Instructions/Handouts: Ileostomy Care (ED) Activity/Diet/Wound Care/Special Instructions: recommendations for Ileosotmy Care: Appliance changed 07.25.2019 Change pouching system to skin every 3 days until irritated area around the stoma is healed Current ileosotmy pouching system and supplies: Colopalst one piece cut to fit with filter #[id number] Convex (four sent home with pt) Skin prep and osotmy powder around the stoma to irritated skin area Crusting technique 3-[address] pouch Osotmy belt attach to the pouching system Empty the pouching system when 1/2 to 1/3 full Best time of the day for changing the pouching system in the radiologic technician Home Health please visit in the radiologic technician on the day Ms Worrell is changing t he pouching system If the Coloplast convex pouching system does not seal utilize Convatec falnge moldable to size of the stoma # #[id number] Convatec Pouch with filter #[id number] Continue with the crusting techniqu of skin prep around the stoma followed by the osotmy powder dusted 3- 4 layers Ms Worrell will be receiving sample supplies for her ileostomy care from [employer] and [employer]oplast in the next 5-7 days Discharge Disposition: HOME SELF-CARE
== END 2019-07-25 14:45 | disposition home health service (06) | DRG 394 ==
LOC: EC 16:24 → 1SOBS 18:18 → OBSVTOIN 07-25 09:53
PROVIDERS: ADMIT Hospitalist; ATTEND Hospitalist
DX: K94.13 Enterostomy malfunction (principal); C78.7 Secondary malignant neoplasm of liver and intrahepatic bile duct; C20 Malignant neoplasm of rectum; E66.9 Obesity, unspecified; F17.210 Nicotine dependence, cigarettes, uncomplicated; I10 Essential (primary) hypertension; M79.7 Fibromyalgia; Z68.31 Body mass index [BMI] 31.0-31.9, adult; Z92.21 Personal history of antineoplastic chemotherapy; Z92.3 Personal history of irradiation; Z79.899 Other long term (current) drug therapy; Z88.2 Allergy status to sulfonamides; Z91.040 Latex allergy status
CPT/HCPCS: 99284

== ENCOUNTER 2019-08-09 18:49 | Emergency (ER) | payer OTHER ==
[2019-08-09] MEDS ORDERED: KETOROLAC 30 MG/ML 1 ML VIAL IVP STA (20:02)
[2019-08-09 20:03] LABS: Basophils # (A) 0.1 k/uL (0-0.2); Basophils % (A) 1 %; Eosinophils # (A) 0.1 k/uL (0-0.7); Eosinophils % (A) 1 %; HCT 33.2 % (34.0-46.0); HGB 11.5 gm/dL (11.4-16.0); Lymphocytes # (A) 1.2 k/uL (1.0-4.8); Lymphocytes % (A) 12 %; MCH 33.1 pg (25.0-35.0); MCHC 34.6 g/dL (31.0-37.0); MCV 95.6 fL (80.0-100.0); Mean Platelet Volume 5.8; Monocytes # (A) 0.8 k/uL (0-1.0); Monocytes % (A) 8 %; Neutrophils # (A) 7.5 k/uL (1.3-7.7); Neutrophils % (A) 77 %; Platelet Count 423 k/uL (150-450); RBC 3.48 m/uL (3.80-5.40); RDW 13.4 % (11.5-15.5); WBC 9.8 k/uL (3.8-10.6)
[2019-08-09] MEDS ORDERED: MORPHINE SULFATE 4 MG/ML SYRINGE IVP STA (20:07)
--- NOTE | 2019-08-09 20:09 | ED ---
General Adult HPI - General Chief complaint: Back Pain/Injury Stated complaint: Back pain Time Seen by Provider: 08/09/19 19:05 Source: patient, RN notes reviewed Mode of arrival: ambulatory Limitations: no limitations - History of Present Illness Initial comments: 58-year-old female with a past medical history of stage IV rectal cancer with colon resection 4 weeks ago presents to the emergency department for a chief complaint of back pain. Patient states she has pain around her anus as well as her upper buttocks. States this pain has been constant ever since her surgery 4 weeks ago. Patient had a colon resection at [facility]. States it waxes and wanes. States she saw her primary care provider about a week after the surgery for it and they gave her steroids but it did not seem to help. She denies any pain in the lumbar area. She denies any radiating pain down the legs. Denies weakness in the lower extremities. No fevers or chills at home. Admits to mild pelvic pain.Patient has no other complaints at this time including shortness of breath, chest pain, nausea or vomiting, headache, or visual changes. - Related Data Home Medications Medication Instructions Recorded Confirmed Butalb/APAP/Caff 50-325-40Mg 1 tab PO Q8H PRN 07/23/19 07/23/19 [Fioricet 50-325-40] Gabapentin 600 mg PO QID 07/23/19 07/23/19 Ibuprofen [Motrin Ib] 600 mg PO Q6H PRN 07/23/19 07/23/19 Loperamide [Imodium] 2 mg PO BID 07/23/19 07/23/19 Methocarbamol [Robaxin] 500 mg PO QID 07/23/19 07/23/19 Muscle Relaxer(Unknown) 1 tab PO DIRECTED 07/23/19 07/23/19 oxyCODONE HCL [OxyIR] 5 mg PO Q4H PRN 07/23/19 07/23/19 Enoxaparin [Lovenox] 40 mg SQ DAILY 07/25/19 07/25/19 Previous Rx's Medication Instructions Recorded Acetaminophen Tab [Tylenol] 650 mg PO Q6HR PRN tab 07/25/19 Amoxicillin/Potassium Clav 1 tab PO Q12HR #20 tab 08/09/19 [Augmentin 875-125 Tablet] Allergies Allergy/AdvReac Type Severity Reaction Status Date / Time Sulfa (Sulfonamide Allergy Rash/Hives Verified 08/09/19 19:04 Antibiotics) Latex, Natural Rubber AdvReac Rash/Hives Verified 08/09/19 19:04 Review of Systems ROS Statement: Those systems with pertinent positive or pertinent negative responses have been documented in the HPI. ROS Other: All systems not noted in ROS Statement are negative. Past Medical History Past Medical History: Cancer, Fibromyalgia, Hypertension Additional Past Medical History / Comment(s): NO RX FOR HTN -" on and off high bp", CONSTIPATION/diarrhea, HAS BEEN HAVING BLOOD IN STOOL OFF AND ON FOR PAST MONTH, hx ulcer, IBS, rectal cancer and liver-recent dx, History of Any Multi-Drug Resistant Organisms: None Reported Past Surgical History: Tonsillectomy Additional Past Surgical History / Comment(s): oral surgery, colonoscopies x 6- 8, ileostomy, rectal surgery Past Anesthesia/Blood Transfusion Reactions: No Reported Reaction Past Psychological History: No Psychological Hx Reported Smoking Status: Former smoker Past Alcohol Use History: None Reported Past Drug Use History: None Reported - Past Family History Father Family Medical History: Cancer Additional Family Medical History / Comment(s): skin Mother Family Medical History: Deep Vein Thrombosis (DVT) General Exam Limitations: no limitations General appearance: alert, in no apparent distress Head exam: Present: atraumatic, normocephalic, normal inspection Eye exam: Present: normal appearance, PERRL, EOMI. Absent: scleral icterus, conjunctival injection, periorbital swelling ENT exam: Present: normal exam, mucous membranes moist Neck exam: Present: normal inspection. Absent: tenderness, meningismus, lymphadenopathy Respiratory exam: Present: normal lung sounds bilaterally. Absent: respiratory distress, wheezes, rales, rhonchi, stridor Cardiovascular Exam: Present: regular rate, normal rhythm, normal heart sounds. Absent: systolic murmur, diastolic murmur, rubs, gallop, clicks GI/Abdominal exam: Present: soft, tenderness (Mild mid pelvic tenderness, no tenderness elsewhere in the abdomen), normal bowel sounds. Absent: distended, guarding, rebound, rigid Extremities exam: Present: normal capillary refill (Refill less than 2 seconds, DP pulses 2+ in lower extremities bilaterally) Back exam: Absent: CVA tenderness (R), CVA tenderness (L), vertebral tenderness (No vertebral tenderness. No lumbar pain. Pain is more perianally as well as in the sacral area) Neurological exam: Present: alert Psychiatric exam: Present: normal affect, normal mood Course Vital Signs 08/09/19 08/09/19 19:01 21:00 Temperature 99.7 F H 97.4 F L Pulse Rate 105 H 73 Respiratory 22 18 Rate Blood Pressure 125/82 92/48 O2 Sat by Pulse 98 97 Oximetry Medical Decision Making - Medical Decision Making CT abdomen and pelvis was obtained given patient's recent surgery. CT shows a presacral fluid collection with air posterior to the surgery site of the rectal surgery that could be a pre-sacral abscess. However this is not consistent with patient's pain as her pain has been consistent from the moment she woke up from the surgery to today. it has not worsened. She has not developed any fevers. She does not have an elevated white blood cell count. Her surgeon is Dr Chand of [facility]. I paged Dr Chand's surgical team 2 times and waited over an hour for a page back. I was unable to reach them unfortunately. Discussed this case in depth with Dr. Márquez. At this time given the inconsistency of patient's symptoms and the pain seemingly unrelated to an abscess, we fill comfortable having patient follow up outpatient. She will be started on Augmentin. She'll be given a short course of Tylenol 3 for pain. Her pain is much improved at The emergency department today after pain medication. She will also follow up closely with Dr. Torres and Dr. Chand. She will return here if she has any worsening symptoms or develops fevers. She also does not have any lower extremity symptom, or weakness of the lower extremities. - Lab Data Result diagrams: 08/09/19 19:55 08/09/19 19:55 Lab Results 08/09/19 08/09/19 08/09/19 Range/Units 19:55 19:55 19:55 WBC 9.8 (3.8-10.6) k/uL RBC 3.48 L (3.80-5.40) m/uL Hgb 11.5 (11.4-16.0) gm/dL Hct 33.2 L (34.0-46.0) % MCV 95.6 (80.0-100.0) fL MCH 33.1 (25.0-35.0) pg MCHC 34.6 (31.0-37.0) g/dL RDW 13.4 (11.5-15.5) % Plt Count 423 (150-450) k/uL Neutrophils % 77 % Lymphocytes % 12 % Monocytes % 8 % Eosinophils % 1 % Basophils % 1 % Neutrophils # 7.5 (1.3-7.7) k/uL Lymphocytes # 1.2 (1.0-4.8) k/uL Monocytes # 0.8 (0-1.0) k/uL Eosinophils # 0.1 (0-0.7) k/uL Basophils # 0.1 (0-0.2) k/uL Sodium 140 (137-145) mmol/L Potassium 3.7 (3.5-5.1) mmol/L Chloride 108 H (98-107) mmol/L Carbon Dioxide 23 (22-30) mmol/L Anion Gap 9 mmol/L BUN 23 H (7-17) mg/dL Creatinine 0.83 (0.52-1.04) mg/dL Est GFR (CKD-EPI)AfAm >90 (>60 ml/min/1.73 sqM) Est GFR (CKD-EPI)NonAf 79 (>60 ml/min/1.73 sqM) Glucose 98 (74-99) mg/dL Plasma Lactic Acid Neal 0.9 (0.7-2.0) mmol/L Calcium 9.0 (8.4-10.2) mg/dL Total Bilirubin 0.2 (0.2-1.3) mg/dL AST 19 (14-36) U/L ALT 31 (9-52) U/L Alkaline Phosphatase 94 (38-126) U/L Total Protein 6.0 L (6.3-8.2) g/dL Albumin 3.2 L (3.5-5.0) g/dL Amylase 57 (30-110) U/L Lipase 85 (23-300) U/L Urine Color Urine Appearance (Clear) Urine pH (5.0-8.0) Ur Specific Geraldine (1.001-1.035) Urine Protein (Negative) Urine Glucose (UA) (Negative) Urine Ketones (Negative) Urine Blood (Negative) Urine Nitrite (Negative) Urine Bilirubin (Negative) Urine Urobilinogen (<2.0) mg/dL Ur Leukocyte Esterase (Negative) Urine RBC (0-5) /hpf Urine WBC (0-5) /hpf Ur Squamous Epith Cells (0-4) /hpf Urine Mucus (None) /hpf 08/09/19 Range/Units 20:25 WBC (3.8-10.6) k/uL RBC (3.80-5.40) m/uL Hgb (11.4-16.0) gm/dL Hct (34.0-46.0) % MCV (80.0-100.0) fL MCH (25.0-35.0) pg MCHC (31.0-37.0) g/dL RDW (11.5-15.5) % Plt Count (150-450) k/uL Neutrophils % % Lymphocytes % % Monocytes % % Eosinophils % % Basophils % % Neutrophils # (1.3-7.7) k/uL Lymphocytes # (1.0-4.8) k/uL Monocytes # (0-1.0) k/uL Eosinophils # (0-0.7) k/uL Basophils # (0-0.2) k/uL Sodium (137-145) mmol/L Potassium (3.5-5.1) mmol/L Chloride (98-107) mmol/L Carbon Dioxide (22-30) mmol/L Anion Gap mmol/L BUN (7-17) mg/dL Creatinine (0.52-1.04) mg/dL Est GFR (CKD-EPI)AfAm (>60 ml/min/1.73 sqM) Est GFR (CKD-EPI)NonAf (>60 ml/min/1.73 sqM) Glucose (74-99) mg/dL Plasma Lactic Acid Neal (0.7-2.0) mmol/L Calcium (8.4-10.2) mg/dL Total Bilirubin (0.2-1.3) mg/dL AST (14-36) U/L ALT (9-52) U/L Alkaline Phosphatase (38-126) U/L Total Protein (6.3-8.2) g/dL Albumin (3.5-5.0) g/dL Amylase (30-110) U/L Lipase (23-300) U/L Urine Color Yellow Urine Appearance Clear (Clear) Urine pH 6.0 (5.0-8.0) Ur Specific Geraldine >1.050 H (1.001-1.035) Urine Protein Trace H (Negative) Urine Glucose (UA) Negative (Negative) Urine Ketones Negative (Negative) Urine Blood Trace H (Negative) Urine Nitrite Negative (Negative) Urine Bilirubin Negative (Negative) Urine Urobilinogen <2.0 (<2.0) mg/dL Ur Leukocyte Esterase Trace H (Negative) Urine RBC 4 (0-5) /hpf Urine WBC 1 (0-5) /hpf Ur Squamous Epith Cells 2 (0-4) /hpf Urine Mucus Rare H (None) /hpf Disposition Clinical Impression: Back pain Disposition: HOME SELF-CARE Condition: Good Instructions (If sedation given, give patient instructions): Acute Low Back Pain (ED) Additional Instructions: Please take antibiotic as directed. Please follow-up with primary care in 1-2 days as well as your surgeon Dr. Chand. Please return to the emergency department if you have any worsening symptoms or develop fevers. Prescriptions: Amoxicillin/Potassium Clav [Augmentin 875-125 Tablet] 1 tab PO Q12HR #20 tab Is patient prescribed a controlled substance at d/c from ED?: No Referrals: Amador Torres MD [Primary Care Provider] - 1-2 days Time of Disposition: 22:51
[2019-08-09 20:11] LABS: ALT 31 U/L (9-52); AST 19 U/L (14-36); African American GFR (CKD) >90 (>60 ml/min/1.73 sqM); Albumin 3.2 g/dL (3.5-5.0); Alkaline Phosphatase 94 U/L (38-126); Amylase 57 U/L (30-110); Anion Gap 9 mmol/L; Blood Urea Nitrogen 23 mg/dL (7-17); Carbon Dioxide 23 mmol/L (22-30); Chloride 108 mmol/L (98-107); Glucose 98 mg/dL (74-99); Non-African American GFR(CKD) 79 (>60 ml/min/1.73 sqM); Potassium 3.7 mmol/L (3.5-5.1); Sodium 140 mmol/L (137-145); Total Bilirubin 0.2 mg/dL (0.2-1.3)
--- NOTE | 2019-08-09 20:38 | CT ---
EXAMINATION TYPE: CT abdomen pelvis w con DATE OF EXAM: 08/09/2019 COMPARISON: None HISTORY: Perirectal and sacral pain after recent bowel resection. History of rectal cancer. CT DLP: 1204.2 mGycm Automated exposure control for dose reduction was used. TECHNIQUE: Helical acquisition of images was performed from the lung bases through the pelvis. CONTRAST: Performed without Oral Contrast and with IV Contrast, patient injected with 100ml mL of Isovue 300. FINDINGS: Lung bases are clear. There is no pleural effusion. Liver spleen pancreas stomach appear normal. Bile ducts are not dilated. Gallbladder appears normal. There is no adrenal mass. There is 1.5 cm cortical cyst interpolar left kidney. Kidneys have normal s ize and contour. There is no hydronephrosis. Ureters are not dilated. Abdominal aorta is atheromatous . There is no retroperitoneal adenopathy. Bladder distends smoothly. There are clips from surgery at the rectum. There is fluid collection in the pelvis on the right side with fluid level. This appears to be fluid in the cecum. This is to the right side of the uterus. Ut erus is anteverted. There is a presacral elongated air and fluid collection posterior to the rectal s urgery. This measures approximately 6 x 6 x 1.5 cm. There is right side stoma that is apparently an ileostomy. This is apparently a loop ileostomy. Lumba r spine is intact. I see no compression fracture. Bony pelvis is intact. IMPRESSION: THERE IS LOOP ILEOSTOMY. There is fluid collection in the pelvis in the right adnexal region that arpit arently is the cecum low in the pelvis. There is presacral fluid collection with air posterior to the surgery site of the rectal surgery. Thi s could be a presacral abscess..
[2019-08-09 20:43] LABS: Appearance,Urine Clear (Clear); Bilirubin,Urine Negative (Negative); Blood,Urine Trace (Negative); Color,Urine Yellow; Glucose,Urine (UA) Negative (Negative); Ketones,Urine Negative (Negative); Leukocyte Esterase,Urine Trace (Negative); Mucus,Urine Rare /hpf; Nitrite,Urine Negative (Negative); Protein,Urine Trace (Negative); RBC,Urine 4 /hpf (0-5); Squamous Epithelial Cell,Urine 2 /hpf (0-4); Urobilinogen,Urine <2.0 mg/dL (<2.0)
[2019-08-09 20:45] LABS: Specific Gravity,Urine >1.050 (1.001-1.035)
[2019-08-09 21:24] VITALS: RESP 18
[2019-08-09] MEDS ORDERED: ACET/COD 300 MG/30 MG STARTER PACK 6 TAB BTL PO STA (22:51)
[2019-08-09] MEDS ORDERED: AMOXIC-POT CLAV 875MG STARTER 2 EACH TABLET PO STA (22:51)
[2019-08-09 23:15] VITALS: BP 101/64; PULSE 70; TEMP 97.8
== END 2019-08-09 23:22 | disposition home or self-care (01) ==
LOC: EC 18:49
DX: M54.5 Low back pain (principal); R10.2 Pelvic and perineal pain; M79.7 Fibromyalgia; Z87.891 Personal history of nicotine dependence; Z88.2 Allergy status to sulfonamides; Z91.040 Latex allergy status; Z79.01 Long term (current) use of anticoagulants; Z79.899 Other long term (current) drug therapy; Z87.19 Personal history of other diseases of the digestive system; Z85.048 Personal history of other malignant neoplasm of rectum, rectosigmoid junction, and anus; Z85.05 Personal history of malignant neoplasm of liver; Z93.2 Ileostomy status; Z90.49 Acquired absence of other specified parts of digestive tract; Z98.890 Other specified postprocedural states; Z53.8 Procedure and treatment not carried out for other reasons
CPT/HCPCS: 36415; 80053; 82150; 83605; 83690; 85025; 81001; 74177; 99284; 96374; J2270; Q9967

== ENCOUNTER → 2019-08-17 | Outpatient (CLI) | payer OTHER ==
--- NOTE | 2019-08-17 14:16 | MR ---
EXAMINATION TYPE: MR lumbar spine wo con DATE OF EXAM: 08/17/2019 COMPARISON: CT abdomen and pelvis 8 days ago. HISTORY: History of rectal cancer with back pain. TECHNIQUE: Multiplanar, multisequence imaging of the lumbar spine is performed without IV contrast. FINDINGS: Sagittal images of the lumbar spine show vertebral body heights and alignment to remain sat isfactory. Multilevel disc desiccation is seen. There is mild to moderate disc space narrowing and mo derate anterior spurring L2-L3 level . The conus medullaris is normal in position and signal ending s uperior L1 level. Heterogeneous Modic type II endplate changes noted L2-L3 level. There is additional mild anterior spurring L3-L4 and L4-L5 levels. Axial images show T12-L1 and L1-L2 levels to appear within normal limits. Axial images at L2-L3 level show mild broad disc bulge minimally effacing anterior thecal sac. Bilate ral neural foramina are patent. Axial images at L3-L4 level shows mild to moderate broad disc bulge minimally effaces the anterior th ecal sac. Bilateral neural foramina are patent. Axial images at L4-L5 level show mild broad disc bulge. Spinal canal is preserved. Bilateral neural f oramina are patent. Axial images at L5-S1 level shows small left paracentral disc protrusion but spinal canal is preserve d and bilateral neural foramina are patent. A 1.6 cm T2 hyperintense lesion medially left kidney image 27 correlated with simple thin-walled cyst axial image [address] IMPRESSION: Some multilevel degenerative changes lumbar spine most prominent at L2-L3 level as detail ed above.
== END | disposition home or self-care (01) ==
LOC: RADMRIMAIN 11:56
PROVIDERS: ATTEND Internal Medicine Hematology & Oncology
DX: M99.73 Connective tissue and disc stenosis of intervertebral foramina of lumbar region (principal); M51.26 Other intervertebral disc displacement, lumbar region; M51.27 Other intervertebral disc displacement, lumbosacral region; M47.816 Spondylosis without myelopathy or radiculopathy, lumbar region; C20 Malignant neoplasm of rectum
CPT/HCPCS: 72148

== ENCOUNTER → 2019-09-12 | Outpatient (CLI) | payer OTHER ==
--- NOTE | 2019-09-12 10:51 | CT ---
EXAMINATION TYPE: CT pelvis w con DATE OF EXAM: 09/12/2019 COMPARISON: 08/09/2019 HISTORY: Coccyx pain per patient. Post Op rectal surgery [address] DLP: 645.3 mGycm CONTRAST: CT scan of the pelvis is performed without Oral Contrast and with IV Contrast, patient injected with 100 mL of Isovue 300. FINDINGS: PANCREAS: No inflammation. No distinct mass. SPLEEN: No splenic enlargement. No lesion seen. ADRENALS: No nodule. No thickening. KIDNEYS/BLADDER: No hydronephrosis. No nephrolithiasis. No distinct renal mass. Urinary bladder g rossly unremarkable. BOWEL: Presacral collection with the one or 2 tiny foci of air persists and measures 3.5 x 4.2 x 1.6 cm. Abscess is not excluded. No evidence of bone destruction at this time. Postoperative changes are noted about the rectum with surgical clips and sutures noted. Loop ileostomy right lower quadrant not ed. GENITAL ORGANS: No gross abnormality. LYMPH NODES: No greater than 1cm abdominal or pelvic lymph nodes are appreciated. AORTA: No significant abnormality. OSSEOUS STRUCTURES: No significant abnormality is seen. OTHER: No significant additional abnormality is seen. IMPRESSION: 1. Presacral collection with the one or 2 tiny foci of air persists and measures 3.5 x 4.2 x 1.6 cm. Abscess is not excluded. No evidence of bone destruction at this time. Postoperative changes are note d about the rectum with surgical clips and sutures noted. Loop ileostomy right lower quadrant noted.
== END | disposition home or self-care (01) ==
LOC: RADCTMAIN 08:03
PROVIDERS: ATTEND Internal Medicine
DX: M53.3 Sacrococcygeal disorders, not elsewhere classified (principal); Z98.890 Other specified postprocedural states
CPT/HCPCS: 72193; Q9967

== ENCOUNTER → 2019-09-28 | Outpatient (CLI) | payer OTHER ==
[2019-09-28 16:08] LABS: HCT 38.4 % (34.0-46.0); HGB 12.7 gm/dL (11.4-16.0); MCH 31.3 pg (25.0-35.0); MCHC 33.2 g/dL (31.0-37.0); MCV 94.4 fL (80.0-100.0); Mean Platelet Volume 7.3; Platelet Count 331 k/uL (150-450); RBC 4.07 m/uL (3.80-5.40); RDW 13.6 % (11.5-15.5); WBC 6.2 k/uL (3.8-10.6)
[2019-09-28 16:21] LABS: INR 0.9 (<1.2); Partial Thromboplastin Time 26.1 sec (22.0-30.0); Prothrombin Time 9.9 sec (9.0-12.0)
== END | disposition home or self-care (01) ==
LOC: LABWHC1 15:51
PROVIDERS: ATTEND Colon & Rectal Surgery
DX: N73.9 Female pelvic inflammatory disease, unspecified (principal)
CPT/HCPCS: 36415; 85027; 85610; 85730

== ENCOUNTER → 2019-10-04 | Outpatient (CLI) | payer OTHER ==
--- NOTE | 2019-10-04 15:19 | MR ---
EXAMINATION TYPE: MR lspine/sacrum wo/w con DATE OF EXAM: 10/04/2019 COMPARISON: MRI of the lumbar spine dated 08/17/[address] dated 09/12/2019 HISTORY: Back pain rectal Ca TECHNIQUE: Multiplanar, multisequence images of the lumbar spine and sacrum is performed without and with IV con trast, utilizing 7.5 mL intravenous Gadavist FINDINGS: The lumbar spine vertebral bodies maintain normal vertebral body height and alignment. There is no ab normal bone marrow replacement of the lumbar spine or sacral elements on T1-weighted nonfat saturated sequence. Multilevel disc desiccation is seen. Conus medullaris is unremarkable terminating at L1-L2 . There is a T2 hyperintense and T1 hypointense probable left renal cyst measuring 1.4 cm. L1-L2: Disc desiccation without spinal canal stenosis or neural foraminal narrowing. L2-L3: There is a broad-based disc bulge and mild facet arthropathy resulting in mild bilateral neuro foraminal narrowing without spinal canal stenosis. L3-L4: There is a broad-based disc bulge and facet arthropathy resulting in mild bilateral neural for aminal narrowing. No spinal canal stenosis. L4-L5: There is a broad-based disc bulge and facet arthropathy present. Minimal ligamentum flavum buc nahun. Very minimal bilateral neural foraminal narrowing. No spinal canal stenosis. L5-S1: Very small left paracentral disc herniation is redemonstrated although the spinal canal and ne ural foramen are again patent. Minimal facet arthropathy. No abnormal postcontrast enhancement is seen in the lumbar spine nor of the cystic lesion of the left kidney. Rudimentary disc is seen at S1-S2. No displaced fracture or abnormal bone marrow of the sacrum is see n. There is a very scant amount of fluid in the perirectal and presacral spaces. Partial visualizatio n of the known right lower quadrant ostomy. Sigmoid diverticula are present. Sacral neural foramen ap pear patent. IMPRESSION: 1. Redemonstration of a stable very small left paracentral disc herniation at L5-S1 and multilevel de generative disc disease of the lumbar spine without spinal canal stenosis. 2. No abnormal bone marrow replacement of the lumbar spine nor sacrum. No findings concerning for oss eous metastasis on MRI. No abnormal enhancement. No bone marrow edema. 2. Scant amount of fluid in the presacral space and perirectal space is likely posttreatment change.
== END | disposition home or self-care (01) ==
LOC: RADMRIMAIN 09:57
PROVIDERS: ATTEND Internal Medicine Hematology & Oncology
DX: M51.27 Other intervertebral disc displacement, lumbosacral region (principal); M51.36 Other intervertebral disc degeneration, lumbar region; C20 Malignant neoplasm of rectum
CPT/HCPCS: 72158; 72197; A9585

== ENCOUNTER → 2019-12-05 | Outpatient (CLI) | payer OTHER | END | disposition home or self-care (01) | DX: N28.1 Cyst of kidney, acquired (principal) | CPT/HCPCS: 76770 ==

== ENCOUNTER → 2019-12-10 | Outpatient (CLI) | payer OTHER ==
--- NOTE | 2019-12-13 06:36 | PE ---
EXAMINATION TYPE: PET CT fusion skull to thigh DATE OF EXAM: 12/10/2019 COMPARISON: CT pelvis September 12, 2019 and older CTs. Outside PET/CT report June 30, 2019. HISTORY: Rectal cancer metastatic to liver diagnosed October 29, 2018 per patient. History of surger y July 13, 2019. TECHNIQUE: Following the intravenous administration of 9.65 mCi of F-18 FDG, whole body images are p erformed from the skull base to the midthigh. Images are reviewed on the computer in the coronal, ax ial, and sagittal planes. Reconstructed rotating images are created on independent workstation and r eviewed on the computer. A noncontrast CT is performed in conjunction with the PET scan. SCAN: Subsequent Scan FINDINGS: SKULL BASE AND NECK: Persistent 8 mm hypermetabolic solid nodule deep left parotid gland axial image 25, max SUV is 4.43. No significant change from prior PET/CT. No new areas of suspicious hypermetabo lic uptake. CHEST, MEDIASTINUM, AND HILAR REGION: No new suspicious hypermetabolic uptake. No new suspicious or e nlarging nodules. ABDOMEN AND PELVIS: No new or residual liver lesions are evident with particular attention to the pos terior inferior right hepatic lobe and area of prior single metastatic focus. Distal colectomy with right-sided abdominal colostomy is now present. There is suspicious hypermetabo lic uptake in the slightly thickened left presacral soft tissue axial image 225 measuring 2.1 x 1.5 c m, max SUV is 7.23. OSSEOUS STRUCTURES: Mild hypermetabolic uptake right greater than left trochanter level presumed infl ammatory or bursitis. No areas of suspicious hypermetabolic uptake. OTHER CT: Right internal jugular central venous catheter terminates in SVC. [id number] calcified plaque abdominal aorta extends into branch vessels. IMPRESSION: Interval surgical resection of primary rectal carcinoma with colostomy. Complete positive treatment response to single liver metastatic focus. There is however recurrent active tumor in the presacral space just left of midline strongly suspected. No new metastatic disease identified. Stable left parotid hypermetabolic mass or neoplasm.
== END | disposition home or self-care (01) ==
LOC: RADPETMAIN 09:26
PROVIDERS: ATTEND Internal Medicine Hematology & Oncology
DX: C20 Malignant neoplasm of rectum (principal); C78.7 Secondary malignant neoplasm of liver and intrahepatic bile duct; Z93.3 Colostomy status
CPT/HCPCS: 78815; A9552

== ENCOUNTER → 2019-12-16 | Outpatient (CLI) | payer OTHER ==
--- NOTE | 2019-12-16 11:35 | MR ---
MR pelvis with and without contrast history: Rectal carcinoma, tailbone pain Multiplanar multisequence and postcontrast images obtained through the pelvis following 7.[address] IV Correlation to nuclear medicine PET/CT 12/10/2019, lumbar and sacral MR 10/04/2019, prior pelvic MRI Post op changes are present compared to prior pelvic MRI dated 11/05/2018. Some enhancement is noted o n axial image 36-40 postcontrast images, caliber narrowing at this level is indeterminate, point mild activity was noted on PET/CT at this level, the area may be better evaluated with colonoscopy to ass ess for possible mucosal abnormality. At the site of the abnormal hypermetabolic uptake on prior PET/ CT in the presacrococcygeal region, there is some asymmetric soft tissue thickening, axial image #32 on series 701, post contrast images axial image 35 slightly to the left midline shows asymmetric thic kening of the soft tissue with associated enhancement. This extends somewhat caudally as noted on anne or PET/CT but is amorphous, presacral soft tissue thickening does show enhancement somewhat uniformly and diffusely. No evident adenopathy. No significant free fluid is evident, minimal fluid signal pallavi pected. Suspect some local involvement of nerve roots within the abnormal soft tissue in the presacra l region. Urinary bladder shows no abnormal luminal findings. Uterus is atrophic. Bone marrow signal is maintai cherelle. IMPRESSION: Asymmetric enhancement of pelvic soft tissue in the presacrococcygeal region as described with suggested nerve root involvement is indeterminate, follow-up could be performed to assess for s tability or interval change. The area shows a similar appearance to prior MRI 10/04/2019 and may repre sent evolution, posttreatment change rather than recurrent, findings of enhancement involving the rec tosigmoid region as described is indeterminate.
== END | disposition home or self-care (01) ==
LOC: RADMRIMAIN 09:11
PROVIDERS: ATTEND Internal Medicine Hematology & Oncology
DX: M53.3 Sacrococcygeal disorders, not elsewhere classified (principal); K62.89 Other specified diseases of anus and rectum; Z98.890 Other specified postprocedural states; C20 Malignant neoplasm of rectum; R91.1 Solitary pulmonary nodule; K58.9 Irritable bowel syndrome, unspecified; G62.0 Drug-induced polyneuropathy
CPT/HCPCS: 72197; A9585

== ENCOUNTER → 2020-03-07 | Outpatient (CLI) | payer OTHER ==
--- NOTE | 2020-03-08 10:10 | CT ---
EXAMINATION TYPE: CT ChestAbdPelvis w con DATE OF EXAM: 03/07/2020 COMPARISON: PET CT December 10, 2019 and older study October 30, 2018. Chest CT June 08, 2019. CT a bdomen and pelvis August 09, 2019. HISTORY: follow up rectal cancer, coccyx pain CT DLP: 1121.6 mGycm. Automated Exposure Control for Dose Reduction was Utilized. CONTRAST: CT scan of the thorax, abdomen and pelvis is performed with IV Contrast, patient injected with 100 mL of Isovue 300. FINDINGS: LUNGS: Mild dependent atelectasis in both lower lungs. There is a 6 x 5 mm subpleural nodule or nodul ar density right upper lobe axial image 17 not present on prior CT and in retrospect seen on recent P ET/CT but smaller in size at 2 to 3 mm axial image 74.. This is concerning. Background mild underlyin g emphysematous change greatest in the lung apices. No pleural effusion or pneumothorax. MEDIASTINUM: There are no new greater than 1 cm hilar or mediastinal lymph nodes. Prominent but sub centimeter prevascular along with pericarinal lymph nodes are identified. No cardiomegaly or pericard ial effusion is seen. OTHER: Stable right internal jugular Mediport catheter. LIVER/GB: No visualized suspicious hypodense lesions in liver on current study. Known metastatic lesi on from PET/CT posterior inferior right hepatic lobe not clearly identified on this study. PANCREAS: No significant abnormality is seen. SPLEEN: No significant abnormality is seen. ADRENALS: No significant abnormality is seen. KIDNEYS: Bladder poorly distended and thus suboptimally evaluated. BOWEL: Oral contrast does not reach terminal ileum makes evaluation of distal bowel slightly suboptim al. Low-lying cecum into inferior anterior pelvis noted. Mild wall thickening proximal to mid transve rse colon presumed product of nondistention and issues. Surgical sutures at level of rectum. Slightly thickened presacral soft tissues superior to this to left of midline axial image 114 correspond to t he area of PET CT concern without significant interval change or increased focal thickening noted. Pe rsistent right lower quadrant ileostomy. GENITAL ORGANS: Slightly retroverted uterus. Some prominence of the central endometrium hypodensity towards the fundus is noted especially for postmenopausal age, follow-up is advised. I suspect trappe d fluid and cervical stenosis as was present on prior CT and no suspicious hypermetabolic uptake on P ET at this level but would correlate with pelvic ultrasound. LYMPH NODES: No greater than 1cm abdominal or pelvic lymph nodes are appreciated. OSSEOUS STRUCTURES: Mild to moderate spurring and disc space narrowing anterior L2-L3 level. New diff use sclerosis involving the sacrum. OTHER: No significant additional abnormality is seen. IMPRESSION: 1. Suspicious enlarging 6 x 5 mm right upper lobe pulmonary nodule. Stable asymmetric left presacral soft tissue. No identified new or residual liver lesions. 2. Attention to uterus, follow-up pelvic ultrasound is advised. 3. Suspected treatment changes and/or developing subacute/chronic insufficiency fracture to the sacru m. Correlate clinically.
== END | disposition home or self-care (01) ==
LOC: RADCTMAIN 14:02
PROVIDERS: ATTEND Internal Medicine Hematology & Oncology
DX: C20 Malignant neoplasm of rectum (principal); Z88.2 Allergy status to sulfonamides
CPT/HCPCS: 71260; 74177; Q9967

== ENCOUNTER 2020-04-30 06:28 | Emergency (ER) | payer OTHER ==
[2020-04-30 06:35] VITALS: BP 127/78; PULSE 78; RESP 18; TEMP 98.2
[2020-04-30] MEDS ORDERED: MORPHINE SULFATE 2 MG/ML SYRINGE IM STA (06:40)
--- NOTE | 2020-04-30 06:47 | ED ---
Fall HPI - General Chief Complaint: Fall Stated Complaint: wrist injury Time Seen by Provider: 04/30/20 06:35 Source: patient Mode of arrival: ambulatory - History of Present Illness Initial Comments: 59-year-old female presenting today for chief complaint of trip and fall patient states she was on her porch attempting to pull the dog run cord to get her dog in, when she fell forward striking the right side of her face on the porch and caught her fall with her right wrist. Patient states that she did not lose consciousness she denies anticoagulation therapy. Patient states that she really has no headache visual change his nausea vomiting or or symptoms pertaining to striking her face she states it mostly is pain in the right wrist. Patient denies much the chest or abdomen she denies any injury to the left upper extremity lower extremities hips or back. Patient states she can ambulate without difficulty denies any decreased range motion of the fingers but states she is significant pain at the wrist with range of motion. No sensation deficits of the right arm/hand. Patient has no additional complaints. She appears well on arrival no acute distress. Splinting right wrist. - Related Data Home Medications Medication Instructions Recorded Confirmed Butalb/APAP/Caff 50-325-40Mg 1 tab PO Q8H PRN 07/23/19 07/23/19 [Fioricet 50-325-40] Gabapentin 600 mg PO QID 07/23/19 07/23/19 Ibuprofen [Motrin Ib] 600 mg PO Q6H PRN 07/23/19 07/23/19 Loperamide [Imodium] 2 mg PO BID 07/23/19 07/23/19 Muscle Relaxer(Unknown) 1 tab PO DIRECTED 07/23/19 07/23/19 methocarbamoL [Robaxin] 500 mg PO QID 07/23/19 07/23/19 oxyCODONE HCL [OxyIR] 5 mg PO Q4H PRN 07/23/19 07/23/19 Enoxaparin [Lovenox] 40 mg SQ DAILY 07/25/19 07/25/19 Previous Rx's Medication Instructions Recorded Acetaminophen Tab [Tylenol] 650 mg PO Q6HR PRN tab 07/25/19 Amoxicillin/Potassium Clav 1 tab PO Q12HR #20 tab 08/09/19 [Augmentin 875-125 Tablet] Allergies Allergy/AdvReac Type Severity Reaction Status Date / Time Sulfa (Sulfonamide Allergy Rash/Hives Verified 04/30/20 06:35 Antibiotics) Latex, Natural Rubber AdvReac Rash/Hives Verified 04/30/20 06:35 Review of Systems ROS Statement: Those systems with pertinent positive or pertinent negative responses have been documented in the HPI. ROS Other: All systems not noted in ROS Statement are negative. Past Medical History Past Medical History: Cancer, Fibromyalgia, Hypertension Additional Past Medical History / Comment(s): NO RX FOR HTN -" on and off high bp", CONSTIPATION/diarrhea, HAS BEEN HAVING BLOOD IN STOOL OFF AND ON FOR PAST MONTH, hx ulcer, IBS, rectal cancer and liver-recent dx, History of Any Multi-Drug Resistant Organisms: None Reported Past Surgical History: Tonsillectomy Additional Past Surgical History / Comment(s): oral surgery, colonoscopies x 6- 8, ileostomy, rectal surgery Past Anesthesia/Blood Transfusion Reactions: No Reported Reaction Past Psychological History: No Psychological Hx Reported Smoking Status: Current every day smoker Past Alcohol Use History: Occasional Past Drug Use History: None Reported - Past Family History Father Family Medical History: Cancer Additional Family Medical History / Comment(s): skin Mother Family Medical History: Deep Vein Thrombosis (DVT) General Exam - General Exam Comments Initial Comments: General: The patient is awake and alert, in no distress, and does not appear acutely ill. Eye: +3 mm pupils are equal, round and reactive to light, extra-ocular movements are intact, no limitations or pain. No nystagmus. There is normal conjunctiva bilaterally. No signs of icterus. Ears, nose, mouth and throat: There are moist mucous membranes and no oral lesions. Swelling below the right orbit. No raccoon or Spencer sign. No palpable step-offs of the orbit [id number] area of ecchymosis below right eye. Neck: The neck is supple, there is no tenderness or JVD. Cardiovascular: There is a regular rate and rhythm. No murmur, rub or gallop is appreciated. Respiratory: Lungs are clear to auscultation, respirations are non-labored, breath sounds are equal. No wheezes, stridor, rales, or rhonchi. Gastrointestinal: Soft, non-distended, non-tender abdomen without masses or organomegaly noted. There is no rebound or guarding present. Musculoskeletal: Upon gross inspection of the right wrist patient has soft tissue swelling, no ecchymosis. Pain to palpation over carpals diffusely. Full ROM of digits of the right hand refuses to range right wrist secondary to pain, no wrist drop. Radial pulses equal bilaterally 2+.ABle to make the fingers crossed ok thumbs up sign. Neurological: A&O x 3. CN II-XII intact, There are no obvious motor or sensory deficits. Coordination appears grossly intact. Speech is normal. Skin: Skin is warm and dry and no rashes or lesions are noted. Psychiatric: Cooperative, appropriate mood & affect, normal judgment. Limitations: no limitations Course Vital Signs 04/30/20 06:30 Temperature 98.2 F Pulse Rate 78 Respiratory 18 Rate Blood Pressure 127/78 O2 Sat by Pulse 98 Oximetry Medical Decision Making - Medical Decision Making XR (-) of facial bones. No step off was palpable. Denies hitting head only face. Denies WRAY, N/V. Patient has no focal neurological deficits. Patient XR wrist reveals distal radius fracture and displaced ulnar styloid fracture. Splint in place. Patient neurovascularly intact both prior to and after splinting. Compartments are soft and compressible. Patient denied any pain at the elbow or shoulder. After reviewing imaging study with my attending Dr. Bee we feel patient is stable for discharge with PCP f/u. Disposition Clinical Impression: Distal radius fracture, Fracture of ulnar styloid, Right wrist injury Disposition: HOME SELF-CARE Condition: Good Instructions (If sedation given, give patient instructions): Wrist Fracture in Adults (ED) Additional Instructions: Please use medication as discussed. Please follow-up with [facility], calling today to schedule appointment. Please return to emergency room if the symptoms increase or worsen or for any other concerns. Is patient prescribed a controlled substance at d/c from ED?: No Referrals: Amador Torres MD [Primary Care Provider] - 1-2 days Bear Zarco MD [STAFF PHYSICIAN] - 1-2 days Time of Disposition: 07:47
--- NOTE | 2020-04-30 07:18 | XR ---
EXAMINATION TYPE: XR wrist complete RT DATE OF EXAM: 04/30/2020 CLINICAL HISTORY: Fall injury with pain. TECHNIQUE: Frontal, lateral and oblique images of the right wrist are obtained. COMPARISON: None FINDINGS: There is acute avulsion type fracture from the ulnar styloid with 7 mm fracture fragment. There is acute minimally displaced oblique fracture through the distal radial metaphysis, no definit oswaldo intra-articular extension The carpal joint spaces are maintained. The overlying soft tissue appe ars unremarkable. IMPRESSION: There is acute oblique minimally displaced fracture distal radial metaphysis and acute d isplaced avulsion type fracture ulnar styloid. (Initial encounter closed type posttraumatic fracture)
--- NOTE | 2020-04-30 07:19 | XR ---
EXAMINATION TYPE: XR facial bones complete DATE OF EXAM: 04/30/2020 COMPARISON: NONE HISTORY: Fall injury with right orbital pain and swelling. TECHNIQUE: The patient won't completely with Rivas and Garibay frontal view and true lateral view. FINDINGS: Nasal bridge is intact without displaced fracture overlying soft tissue swelling. Orbital f loors and campbell are grossly intact. Paranasal sinuses show no suspicious opacification were air-fluid levels. Visualized mandible is intact. IMPRESSION: No acute displaced facial bone fracture clearly seen.
== END 2020-04-30 07:59 | disposition home or self-care (01) ==
LOC: EC 06:28
DX: S52.611A Displaced fracture of right ulna styloid process, initial encounter for closed fracture (principal); S52.591A Other fractures of lower end of right radius, initial encounter for closed fracture; M79.7 Fibromyalgia; I10 Essential (primary) hypertension; F17.200 Nicotine dependence, unspecified, uncomplicated; Z79.899 Other long term (current) drug therapy; Z88.2 Allergy status to sulfonamides; Z91.040 Latex allergy status; Z85.048 Personal history of other malignant neoplasm of rectum, rectosigmoid junction, and anus; W01.10XA Fall on same level from slipping, tripping and stumbling with subsequent striking against unspecified object, initial encounter; Y93.89 Activity, other specified
CPT/HCPCS: 70150; 73110; 96372; 29105; 99283; J2270

== ENCOUNTER 2020-05-03 12:52 | Day surgery (SDC) | payer OTHER ==
[2020-05-02 11:28] VITALS: BMI 30.7
--- NOTE | 2020-05-02 14:24 | HP ---
HISTORY AND PHYSICAL CHIEF COMPLAINT: Right wrist pain. HISTORY OF PRESENT ILLNESS: Patient is a 59-year-old, right-hand dominant, self-employed female who presents with right wrist pain after an injury on 04/30/2020. She lost her balance and fell off her porch at home, landing on the right side. She had no loss of consciousness. Initially, she was seen at [facility], was placed in a splint. She denies previous injury. PAST MEDICAL HISTORY: Significant for rectal cancer. PAST SURGICAL HISTORY: Significant for colon resection with ileostomy. CURRENT MEDICATIONS: [place]. She has allergies to SULFA. FAMILY HISTORY: Significant for diabetes. SOCIAL HISTORY: Negative for current tobacco or alcohol use. 16 POINT REVIEW OF SYSTEMS: Otherwise reviewed and is noncontributory. PHYSICAL EXAMINATION: On examination, the patient is approximately 5 foot 5, 185 pounds of mesomorphic habitus. HEENT exam is nonfocal. NECK: Supple. She is nontender about the right shoulder and elbow. Her right wrist is splinted. She has moderate digital swelling. Light touch is intact throughout the digits. Capillary refill is less than 2 seconds. She fires the finger flexors and extensors along with the EPL and FPL. X-rays of the right wrist from [facility] 04/30/2020 shows evidence of an extra-articular distal radius fracture with significant dorsal angulation and dorsal comminution. There is an associated ulnar styloid base fracture. IMPRESSION: 1. Right extra-articular distal radius [id number]. 2. History of rectal cancer, status post ileostomy. RECOMMENDATIONS: I talked to the patient at length regarding her condition and treatment options. At this point, she opts to proceed with surgery. With the degree of initial displacement and angulation, I recommend proceeding with open reduction and internal fixation. Potentially, we will keep the patient for a [id number] postoperatively. Risks and benefits were discussed at length in layman's terms. MMODL / IJN: [id number] /
[~2020-05-03 12:52] MED LIST changes: -DEXAMETHASONE SOD PHOSPHATE 10 MG/ML 1 ML VIAL IV ONE; -HEPARIN SODIUM,PORCINE 5,000 UNIT/ML 1 ML VIAL SQ ONE; +HYDROmorphone 0.5 MG/0.5 ML SYRINGE IVP PRN; -LACTATED RINGERS 1,000 ML IV SCH; -MIDAZOLAM 2 MG/2 ML VIAL IV PRN; -ONDANSETRON 4 MG/2 ML VIAL IVP ONE; -Pre Op ABX Message 1 EACH MISC MISCELLANE ONE; -SCOPOLAMINE 1.5MG/72HR PATCH TRANSDERM ONE
[2020-05-03] MEDS: LACTATED RINGERS 1,000 ML IV SCH (13:29)
[2020-05-03] MEDS ORDERED: ONDANSETRON 4 MG/2 ML VIAL ONE (13:30)
[2020-05-03] MEDS ORDERED: DEXAMETHASONE SOD PHOSPHATE 10 MG/ML 1 ML VIAL IV ONE (13:46)
[2020-05-03] MEDS ORDERED: fentaNYL (PF) 50 MCG/ML 2 ML AMP IV ONE (13:48)
[2020-05-03] MEDS ORDERED: MIDAZOLAM 2 MG/2 ML VIAL IV ONE (13:48)
--- NOTE | 2020-05-03 14:01 | P.ANPRN ---
Procedure Note - Anesthesia - Nerve Block Performed Right Supraclavicular Single Time Out Performed: Yes Date of Procedure: 05/03/20 Procedure Start Time: 13:47 Procedure Stop Time: 13:52 Location of Patient: PreOp Indication: Acute Post-Operative Pain, Analgesia, Requested by Surgeon Sedation Type: Sedate with meaningful contact maintained Preparation: Sterile Prep Position: Supine Catheter: None Needle Types: Pajunk Needle Gauge: 21 Ultrasound used to visualize needle placement: Yes Ultrasound used to observe medication spread: Yes Injectate: 0.5% Ropivacaine (see comment for volume) (20cc) Blood Aspirated: No Pain Paresthesia on Injection Noted: No Resistance on Injection: Normal Image Stored and Saved: Yes Events: Uneventful and Well Tolerated
[2020-05-03] MEDS ORDERED: PROPOFOL 10 MG/ML 20 ML VIAL IV ONE (14:18)
[2020-05-03] MEDS ORDERED: fentaNYL (PF) 50 MCG/ML 2 ML AMP ONE (14:18)
[2020-05-03] MEDS ORDERED: MIDAZOLAM 2 MG/2 ML VIAL ONE (14:18)
[2020-05-03] MEDS ORDERED: KETAMINE 10 MG/ML 20 ML VIAL ONE (14:18)
[2020-05-03] MEDS ORDERED: ROPIVACAINE 5 MG/ML 30 ML VIAL ONE (14:18)
[2020-05-03] MEDS ORDERED: BUPIVACAINE (PF) 0.5% 30 ML VIAL SQ ONE (14:20)
--- NOTE | 2020-05-03 16:02 | P.OP ---
Date of Procedure: 05/03/20 Preoperative Diagnosis: Displaced right extra-articular distal radius fracture Postoperative Diagnosis: Same Procedure(s) Performed: Open reduction and internal fixation right extra-articular displaced fracture Implants: Arthrex standard with 3 hole volar plate Anesthesia: MAC, regional Surgeon: Bear Zarco Cook Roast #1: Moe Guerra Estimated Blood Loss (ml): 10 Pathology: none sent Condition: stable Disposition: PACU Indications for Procedure: The patient's a 59-year-old female who presents after falling injuring her right wrist. Upon evaluation she is noted of evidence of a closed extra articular right distal wrist fracture with moderate angulation and displacement. A discussion of the risks and benefits of operative intervention versus conservative measures was made with patient. She opted to proceed with surgery. Operative risks to include infection, neurovascular injury, development of blood clots, possible development nonunion/malunion need for subsequent procedures was discussed. Informed consent was obtained. Operative Findings: As below Description of Procedure: The patient was brought to the operating room after placement of an axillary block and after induction of IV sedation the right upper extremity was prepped and draped in normal fashion. A longitudinal incision extending 8 cm was then made along the volar radial aspect of the right wrist along the flexor carpi radialis. Skin was incised sharply. Subcu tissues were divided bluntly. Electrocautery was used for hemostasis. The flexor carpi radialis sheath was opened. The tendon was gently retracted ulnarly and the radial artery was retracted radially with a blunt retractor. The underlying fascia was opened. The contents the carpal canal were bluntly dissected and moved ulnarly. The pronator quadratus was elevated off the distal radius. The fracture site was identified and cleaned of clot and debris. This was then reduced with longitudinal traction and manipulation. A standard with volar plate was then placed and provisionally held in place with an olive wire and K wire distally. This was verified with fluoroscopy. A 3.5 mm cortical screws placed proximally to fully approximate the plate along the volar surface. Distally locking pegs of the appropriate length were placed. This was verified with fluoroscopy. The distal row/proximal were filled with appropriate length locking pegs. The remaining 2 proximal cortical screws were placed the appropriate length. Final fluoroscopic view showed adequate reduction the fracture and placement of the implant. The distal radioulnar joint was felt to be stable. The wound was irrigated normal saline. The pronator quadratus was repaired with simple 3-0 Vicryl suture. The subcutaneous tissues were reapproximated with simple 3-0 Vicryl suture. The skin was reapproximated with 4-0 subcuticular Prolene suture. Steri-Strips were applied. A sterile dressing was applied in addition to a volar splint. The tourniquet was deflated with less than 1 hour total tourniquet time. The patient was awoken from sedation and transferred to recovery room in good condition. Blood loss estimated 10 mL. No complications were incurred. Alton CABRERA assistance during the major components the case including exposure, fracture reduction, implant placement as well as splint application.
[2020-05-03] MEDS ORDERED: ONDANSETRON 4 MG/2 ML VIAL IVP PRN (16:25)
[2020-05-03] MEDS ORDERED: HYDROmorphone 0.5 MG/0.5 ML SYRINGE IVP PRN (16:25)
[2020-05-03] MEDS ORDERED: HYDROmorphone 1 MG/ML 1 ML SYRINGE IVP PRN (16:25)
[2020-05-03] MEDS ORDERED: CYCLOBENZAPRINE 10 MG TAB PO PRN (16:29)
--- NOTE | 2020-05-03 16:49 | FL ---
EXAMINATION TYPE: FL guidance operating room, XR wrist limited RT DATE OF EXAM: 05/03/2020 CLINICAL HISTORY: Right wrist fracture. TECHNIQUE: Fluoroscopy. Limited intraoperative views right wrist. COMPARISON: Wrist xray 3 days ago. FINDINGS: Fluoroscopic guidance was provided during open reduction internal fixation procedure perfo rmed by Dr. Zarco. A total of 13 seconds of fluoroscopic time was utilized during the procedure and 3 spot intraoperative images are acquired. Intraoperative images show placement of volar fixating plate through overlying fracture distal radial meta-epiphysis with satisfactory alignment after reduction and fixation. Avulsion type fracture from the ulnar styloid redemonstrated and stable. IMPRESSION: As Above.
[2020-05-03] MEDS: IBUPROFEN 800 MG TAB PO SCH ×2 (17:19→23:00)
[2020-05-03] MEDS: GABAPENTIN 300 MG CAP PO PRN ×2 (17:19→22:57)
[2020-05-03] MEDS ORDERED: MORPHINE SULFATE 4 MG/ML SYRINGE IVP PRN (20:14)
[2020-05-03] MEDS: HYDROcodone/APAP 10-325MG 1 EACH TAB PO PRN (22:56)
[2020-05-04] MEDS: LACTATED RINGERS 1,000 ML IV SCH (05:25)
[2020-05-04 07:32] VITALS: BP 105/71; PULSE 65; RESP 14; TEMP 97.9
[2020-05-04] MEDS: IBUPROFEN 800 MG TAB PO SCH (07:50)
[2020-05-04] MEDS: HYDROcodone/APAP 10-325MG 1 EACH TAB PO PRN (07:51)
[2020-05-04] MEDS: GABAPENTIN 300 MG CAP PO PRN (07:51)
--- NOTE | 2020-05-04 10:52 | P.PN ---
Subjective Progress Note Date: 05/04/20 Principal diagnosis: status post ORIF right distal radius fracture patient is a 59-year-old female who was evaluated today at bedside. She is resting comfortably after her surgery. She is still having some numbness in the arm from the block that was done yesterday afternoon. She denies any chest pain or shortness of breath. Objective - Vital Signs Vital signs: Vital Signs Temp 97.9 F 05/04/20 07:00 Pulse 65 05/04/20 07:00 Resp 14 05/04/20 07:00 BP 105/71 05/04/20 07:00 Pulse Ox 97 05/04/20 07:00 Intake & Output 05/03/20 05/04/20 05/04/20 18:59 06:59 18:59 Intake Total 650 300 420 Output Total 10 Balance 640 300 420 Weight 85.6 kg Intake: IV 650 160 Lactated Ringers 1,000 ml 160 @ 20 mls/hr IV .Q24H MARIA DE JESUS Rx#:[id number] Oral 300 260 Output: Estimated Blood Loss 10 Other: # Voids 2 # Bowel Movements 1 - Exam Right upper extremity: Postop splint is in good position and condition. There is minimal soft tissue swelling noted in the fingers. Her sensory exam to light touch both proximal and distal to the splint are intact. Skin is warm to touch. Assessment and Plan Assessment: Status post ORIF right distal radius fracture Plan: Patient is doing very well, plan for discharge home today Pain control, she takes oral Stryker 10 mg/325 mg she can resume this Cast instructions were discussed the patient Plan for follow-up at [facility] in 2 weeks Time with Patient: Less than 30
--- NOTE | 2020-05-04 10:57 | P.DS ---
Providers Date of admission: 05/03/2020 Expected date of discharge: 05/04/20 Attending physician: Bear Zarco Primary care physician: [facility] Course: Date of admission: 05/03/2020 Date of discharge: 05/04/2020 Admission diagnosis: Status post ORIF right distal radius fracture Discharge diagnosis: Same Attending physician: Dr. Zarco Surgical procedures: ORIF right distal radius fracture Brief history: Patient is a 59-year-old female who was evaluated in the outpatient setting by Dr. Zarco after a fall that resulted in an injury of her right wrist. It was determined she had a displaced right distal radius fracture, surgical intervention was discussed and planned for 05/03/2020 Hospital course: Details of patient's surgery can be found in operative report. Patient tolerated the procedure well and was subsequently transported to orthopedic floor. Patient's orthopeidc and medical care was provided daily. Patient was noted to have a relatively uneventful postoperative course. Patient reported satisfactory pain control with oral pain medications by postoperative day 0. Patient showed satisfactory progress with physical therapy. Patient moved steadily through the program and had no difficulty meeting the goals by postoperative day 1. Given patient's otherwise satisfactory course and having met physical therapy goals, plan is to discharge patient home on postoperative day 1. Discharge condition/disposition: Patient will be discharged home in stable condition. Discharge medications: Instructions are given on resumption of patient's normal daily medications per primary care recommendation, in addition patient will be prescribed no new medication. Discharge instructions: 1. Do not remove the splint, keep clean and dry when showering 2. Avoid any heavy lifting or excess [place] 3. Visiting nursing care. 4. Follow up in office at 2 weeks postop with Alton Guerra PA-C 5. Follow up with your primary care doctor 7-10 days after discharge. 6. Contact [facility] with any questions, . Procedures: Open reduction internal fixation right distal radius fracture Patient Condition at Discharge: Good Plan - Discharge Summary Discharge Rx Participant: No New Discharge Prescriptions: No Action Gabapentin 600 mg PO QID PRN PRN Reason: Pain Ibuprofen [Motrin] 800 mg PO Q8H Cyclobenzaprine [Flexeril] 10 mg PO HS PRN PRN Reason: Pain HYDROcodone/APAP 10-325MG [[place] 10-325] 1 tab PO Q6HR PRN PRN Reason: Pain Discharge Medication List Gabapentin 600 mg PO QID PRN 07/23/19 [History] Cyclobenzaprine [Flexeril] 10 mg PO HS PRN 05/02/20 [History] HYDROcodone/APAP 10-325MG [[place] 10-325] 1 tab PO Q6HR PRN 05/02/20 [History] Ibuprofen [Motrin] 800 mg PO Q8H 05/02/20 [History] Follow up Appointment(s)/Referral(s): Amador Torres MD [Primary Care Provider] - 05/08/20 1:30 pm Bear Zarco MD [STAFF PHYSICIAN] - 05/23/20 2:20 pm Patient Instructions/Handouts: Wrist Fracture in Adults (DC), ORIF of a Wrist Fracture (DC) Activity/Diet/Wound Care/Special Instructions: Discharge instructions: 1. Resume home medications 2. Keep splint clean and dry, keep covered while showering 3. Avoid excess use with the arm 4. Plan for follow-up at [facility] in 2 weeks Discharge Disposition: HOME WITH HOME HEALTH SERVICES
== END 2020-05-04 11:42 | disposition home health service (06) ==
LOC: OR 12:52 → 4SSUR 16:30 → OR 05-04 11:42
PROVIDERS: ATTEND Orthopaedic Surgery
DX: S52.551A Other extraarticular fracture of lower end of right radius, initial encounter for closed fracture (principal); S52.611A Displaced fracture of right ulna styloid process, initial encounter for closed fracture; F17.210 Nicotine dependence, cigarettes, uncomplicated; Z91.040 Latex allergy status; Z88.2 Allergy status to sulfonamides; Z88.5 Allergy status to narcotic agent; Z79.899 Other long term (current) drug therapy; Z79.891 Long term (current) use of opiate analgesic; Z90.49 Acquired absence of other specified parts of digestive tract; Z93.2 Ileostomy status; Z85.048 Personal history of other malignant neoplasm of rectum, rectosigmoid junction, and anus; Z83.3 Family history of diabetes mellitus; W17.89XA Other fall from one level to another, initial encounter; Y92.009 Unspecified place in unspecified non-institutional (private) residence as the place of occurrence of the external cause
CPT/HCPCS: 64999; 76942; 73100; 25607; C1713; J2250; J1100; J0690 ×2; J2405; J3010; J2795; J2704

== ENCOUNTER → 2021-03-01 | Outpatient (CLI) | payer OTHER ==
--- NOTE | 2021-03-03 09:38 | CT ---
EXAMINATION TYPE: CT ChestAbdPelvis w con DATE OF EXAM: 03/01/2021 COMPARISON: 03/07/2020 12/10/2019 HISTORY: 60-year-old female M47.898, rectal ca, M48.48XG, C79.52 TECHNIQUE: Contiguous axial scanning of the chest, abdomen, and pelvis performed with IV Contrast, pa tient injected with 100 mL of Isovue 300. Delayed images through the kidneys were obtained. Coronal/s agittal reconstructions performed. CT DLP: 1288 mGycm Automated exposure control for dose reduction was used. FINDINGS: CHEST: Right anterior chest wall injection port with catheter tip at the cavoatrial junction. Heart normal size without pericardial effusion. Ectatic aortic root at 2.5 cm. Conventional arch vessel branching anatomy. Prominent 8 mm precarinal lymph node unchanged. No thoracic lymphadenopathy by CT size criteria. Scattered mild emphysematous change. Enlarging subpleural pulmonary nodule periphery of the right upper lobe measuring 1.1 cm now versus 6 mm, previously. Enlarging lobulated nodule anterior left upper lobe measuring 2.3 cm now versus 1.2 cm, previously. No consolidation or pleural effusion. ABDOMEN: There is a subtle new hypodense lesion within the inferior right liver lobe measuring 1.2 cm. Portal venous system is patent. No biliary ductal dilatation. Gallbladder, right adrenal gland, spleen, and pancreas within normal limits. 1.6 cm cortical cyst pos terior left kidney. Mild diffuse thickening of the left adrenal gland without discrete nodularity is unchanged. No dilated small bowel, free fluid, or free air. No mesenteric or retroperitoneal lymph adenopathy se en. Mild metastatic calcifications infrarenal abdominal aorta. Right lower quadrant diverting ileostomy. Mild stool within the right side of the colon. No pericolonic inflammatory change. PELVIS: The cecum contains moderate stool and hangs low into the pelvis. Postsurgical change redemonstrated d istal rectum. Some smooth soft tissue thickening of the presacral region. There is now some air locat ed within the area of thickening likely communicating with the stapled off portion of the rectum. No progressive soft tissue thickening is identified. No abnormal fluid collection in the pelvis. No pelv ic lymphadenopathy seen. Uterus is visualized. Suspect small bilateral ovaries. BONES: Mild degenerative spurring of the hips. Interval large screw fixation across the bilateral SI joints. Heterogeneous density of the bilateral sacroiliac redemonstrated suggesting insufficiency fractures. No osseous destructive process otherwise seen. IMPRESSION: 1. RIGHT LOWER QUADRANT DIVERTING ILEOSTOMY. DISTAL RECTAL RESECTION REDEMONSTRATED. THE ADJACENT SOF T TISSUE THICKENING OF THE PRESACRAL REGION NOW CONTAINS SOME AIR PROBABLY COMMUNICATING WITH THE STA PLED OFF END OF THE RECTUM. NO LIA INCREASING SOFT TISSUE THICKENING HERE TO CLEARLY INDICATE LOCAL PROGRESSION AT THIS TIME. 2. HOWEVER, THERE ARE FINDINGS SUGGESTIVE OF METASTATIC DISEASE INCLUDING 2 ENLARGING PULMONARY NODUL ES NOW MEASURING UP TO 2.3 CM VERSUS 1.2 CM, PREVIOUSLY. A SUBTLE NEW 1.2 CM INFERIOR RIGHT LIVER LOB E LESION IS NOW ALSO NOTED. 3. INTERVAL LARGE SCREWS FIXATING ACROSS THE SI JOINTS. UNDERLYING SACRAL INSUFFICIENCY FRACTURES RED EMONSTRATED.
== END | disposition home or self-care (01) ==
LOC: RADCTMAIN 16:24
PROVIDERS: ATTEND Surgery Surgical Oncology
DX: Z85.048 Personal history of other malignant neoplasm of rectum, rectosigmoid junction, and anus (principal); I77.810 Thoracic aortic ectasia; J43.9 Emphysema, unspecified; R91.8 Other nonspecific abnormal finding of lung field; K76.9 Liver disease, unspecified
CPT/HCPCS: 71260; 74177; Q9967

== ENCOUNTER → 2021-03-04 | Outpatient (CLI) | payer OTHER ==
[2021-03-04 14:10] LABS: INR 0.9 (<1.2); Partial Thromboplastin Time 24.3 sec (22.0-30.0)
[2021-03-04 19:56] LABS: Basophils # (A) 0.04 X 10*3/uL (0.00-0.10); Basophils % (A) 0.7 %; Eosinophils # (A) 0.07 X 10*3/uL (0.04-0.35); Eosinophils % (A) 1.2 %; HCT 42.2 % (37.2-46.3); HGB 14.4 g/dL (12.0-15.0); Lymphocytes # (A) 1.47 X 10*3/uL (0.90-5.00); Lymphocytes % (A) 24.2 %; MCH 34.4 pg (27.0-32.0); MCHC 34.1 g/dL (32.0-37.0); MCV 100.7 fL (80.0-97.0); Mean Platelet Volume 9.8 fL (9.5-12.2); Monocytes # (A) 0.62 X 10*3/uL (0.20-1.00); Monocytes % (A) 10.2 %; Neutrophils # (A) 3.83 X 10*3/uL (1.80-7.70); Platelet Count 360 X 10*3/uL (140-440); RBC 4.19 X 10*6/uL (4.10-5.20); RDW 12.8 % (11.5-14.5); WBC 6.07 X 10*3/uL (4.50-10.00)
[2021-03-04 20:11] LABS: African American GFR (CKD) 93.5 (60.0-200.0); Anion Gap 5.4 mmol/L (4.00-12.00); BUN/Creat Ratio 16.25 Ratio (12.00-20.00); C Reactive Protein 0.4 mg/dL (0.0-0.8); Calcium 9.1 mg/dL (8.7-10.3); Carbon Dioxide 26.6 mmol/L (21.6-31.8); Non-African American GFR(CKD) 80.7 (60.0-200.0); Potassium 4.4 mmol/L (3.5-5.5)
[2021-03-05 14:31] LABS: Erythrocyte Sedimentation Rate 17 mm/Hr (0-30)
== END | disposition home or self-care (01) ==
LOC: LABWHC1 12:45
PROVIDERS: ATTEND Surgery Surgical Oncology
DX: C20 Malignant neoplasm of rectum (principal); C79.52 Secondary malignant neoplasm of bone marrow; M48.4 Fatigue fracture of vertebra; M47.898 Other spondylosis, sacral and sacrococcygeal region
CPT/HCPCS: 36415; 80048; 85025; 85610; 85652; 85730; 86140; 86850; 86900; 86901

== ENCOUNTER 2021-07-25 11:58 | Emergency (ER) | payer OTHER ==
[2021-07-25 12:18] VITALS: RESP 18; TEMP 97.7
[2021-07-25] MEDS ORDERED: KETOROLAC 15 MG/ML 1 ML VIAL IM STA (12:30)
--- NOTE | 2021-07-25 12:59 | US ---
EXAMINATION TYPE: US extremity nonvasc mass RT DATE OF EXAM: 07/25/2021 COMPARISON: NONE CLINICAL HISTORY: right buttock abscess. patient has rectal CA, recent tailbone surgery, new palpable that is red and painful at right buttocks toward perineum. Complex fluid collection noted at area of palpable. Estimated measurements of 4.5 x 3.5 x 3.9cm IMPRESSION: Complex 4.5 cm fluid collection. Hematoma or abscess in the differential diagnosis.
[2021-07-25] MEDS ORDERED: LIDOCAINE 1% INJ 10MG/ML (20 ML MDV) SQ ONE (13:05)
--- NOTE | 2021-07-25 13:06 | ED ---
Skin/Abscess/FB HPI - General Chief complaint: Skin/Abscess/Foreign Body Stated complaint: Abscess Time Seen by Provider: 07/25/21 12:19 Source: patient, EMS, RN notes reviewed Mode of arrival: EMS Limitations: no limitations - History of Present Illness Initial comments: Patient is a 60-year-old female that presents to the emergency department complaining of a right buttock abscess. She notes that she recently had a pilonidal cyst drained and is on ciprofloxacin for. She notes that that one is healing well. She notes she has a second abscess to her right inner buttock. She notes that it is extremely tender. She came here to get it drained. She notes her home health care nurse stated that it probably could be a fistula so she can emergency room to get evaluated. She denied any other issues or complaints or trouble was well-appearing pretty denied chest pain first breath headache nausea vomiting diarrhea constipation fever fatigue chills. - Related Data Home Medications Medication Instructions Recorded Confirmed Gabapentin 600 mg PO QID PRN 07/23/19 05/02/20 Cyclobenzaprine [Flexeril] 10 mg PO HS PRN 05/02/20 05/02/20 HYDROcodone/APAP 10-325MG [[place] 1 tab PO Q6HR PRN 05/02/20 05/02/20 10-325] Ibuprofen [Motrin] 800 mg PO Q8H 05/02/20 05/02/20 Previous Rx's Medication Instructions Recorded Cephalexin [Keflex] 500 mg PO Q6HR #40 cap 07/25/21 Allergies Allergy/AdvReac Type Severity Reaction Status Date / Time hydromorphone [From Dilaudid] Allergy Dyspnea Verified 05/03/20 13:21 Sulfa (Sulfonamide Allergy Rash/Hives Verified 05/02/20 11:19 Antibiotics) Latex, Natural Rubber AdvReac Rash/Hives Verified 05/02/20 11:19 Review of Systems ROS Statement: Those systems with pertinent positive or pertinent negative responses have been documented in the HPI. ROS Other: All systems not noted in ROS Statement are negative. Past Medical History Past Medical History: Cancer, Hypertension Additional Past Medical History / Comment(s): splint rt arm for fracture, states has fractured sacrum, rectal cancer and liver-recent dx, Ileostomy, chemo and radiation in 2019 prior to sx History of Any Multi-Drug Resistant Organisms: None Reported Past Surgical History: Tonsillectomy Additional Past Surgical History / Comment(s): oral surgery, colonoscopies x 6- 8, ileostomy, rectal surgery, nerve blocks for fractured sacrum (having 3rd one 05/02/20) Past Anesthesia/Blood Transfusion Reactions: Previous Problems w/ Anesthesia Additional Past Anesthesia/Blood Transfusion Reaction / Comment(s): states had problems in past with a certain type of morphine at [facility], is going to bring in name, had issues with breathing Past Psychological History: No Psychological Hx Reported Smoking Status: Current every day smoker Past Alcohol Use History: Rare Past Drug Use History: None Reported - Past Family History Father Family Medical History: Cancer Additional Family Medical History / Comment(s): skin Mother Family Medical History: Deep Vein Thrombosis (DVT) General Exam Limitations: no limitations General appearance: alert, in no apparent distress Head exam: Present: atraumatic, normocephalic, normal inspection Eye exam: Present: normal appearance, PERRL, EOMI. Absent: scleral icterus, conjunctival injection, periorbital swelling ENT exam: Present: normal exam, mucous membranes moist Neck exam: Present: normal inspection Respiratory exam: Present: normal lung sounds bilaterally. Absent: respiratory distress, wheezes, rales, rhonchi, stridor Cardiovascular Exam: Present: regular rate, normal rhythm, normal heart sounds. Absent: systolic murmur, diastolic murmur, rubs, gallop, clicks Extremities exam: Present: normal inspection, full ROM, normal capillary refill. Absent: tenderness, pedal edema, joint swelling, calf tenderness Neurological exam: Present: alert, oriented X3 Psychiatric exam: Present: normal affect, normal mood Skin exam: Present: warm, dry, intact, normal color. Absent: rash Expanded Type of lesion: Present: abscess (To right inner butt cheek measuring approximately 4x4 cm minimal fluctuance.) Course Vital Signs 07/25/21 12:14 Temperature 97.7 F Pulse Rate 75 Respiratory 18 Rate Blood Pressure 104/55 O2 Sat by Pulse 98 Oximetry Procedures - Incision & Drainage Consent Obtained: verbal consent Site: buttock (Right) Size (cm): 5 Anesthetic Used: lidocaine 1% Amount (mLs): 12 I&D Cleaning Method: Alcohol Wipe Sterile Field Used?: Yes Scalpel Used: #11 Needle Aspiration Performed?: No Irrigation Performed?: Yes I&D Drainage Obtained: Blood Culture Obtained?: Yes Patient Tolerated Procedure: well, no complications Medical Decision Making - Medical Decision Making 60-year-old female with a right buttock area of tenderness, she thinks it might be an abscess. Ultrasound of the right buttock ordered. Ultrasound shows a 4.5 cm area of concern possible hematoma or abscess. Incision and drainage was attempted only blood was expressed. Visual be sent antibiotics here Case discussed with Dr. English, patient discharge home. - Radiology Data Radiology results: report reviewed, image reviewed Ultrasound right buttock: Complex 4.5 cm fluid collection. Hematoma or abscess in the differential diagnosis. Disposition Clinical Impression: Abscess Disposition: HOME SELF-CARE Condition: Stable Instructions (If sedation given, give patient instructions): Abscess (ED) Additional Instructions: Please return to the Emergency Department if symptoms worsen or any other concerns. Follow-up primary care 1-2 days. Follow-up with surgeon in 1-2 days. Take antibiotics as prescribed. Keep area clean and dry. Is patient prescribed a controlled substance at d/c from ED?: No Referrals: Dianna Winter MD [Primary Care Provider] - 1-2 days Time of Disposition: 14:31
[2021-07-25 14:45] VITALS: BP 110/72; PULSE 76
== END 2021-07-25 14:46 | disposition home or self-care (01) ==
LOC: EC 11:58
DX: L02.31 Cutaneous abscess of buttock (principal); I10 Essential (primary) hypertension; C20 Malignant neoplasm of rectum; F17.200 Nicotine dependence, unspecified, uncomplicated; Z79.1 Long term (current) use of non-steroidal anti-inflammatories (NSAID); Z79.899 Other long term (current) drug therapy; Z88.2 Allergy status to sulfonamides; Z88.5 Allergy status to narcotic agent; Z85.048 Personal history of other malignant neoplasm of rectum, rectosigmoid junction, and anus
CPT/HCPCS: 87070; 87205; 76882; 10060; 96372; 99284; J2001; J1885

== ENCOUNTER → 2022-02-03 | Outpatient (CLI) | payer OTHER ==
[2022-02-03 22:55] LABS: HCT 43.2 % (37.2-46.3); HGB 14.3 g/dL (12.0-15.0); MCH 34.8 pg (27.0-32.0); MCHC 33.1 g/dL (32.0-37.0); MCV 105.1 fL (80.0-97.0); NRBC Per 100 WBC 0 /100 WBCS (0.0-0.0); Platelet Count 344 X 10*3/uL (140-440); RBC 4.11 X 10*6/uL (4.10-5.20); RDW 13.5 % (11.5-14.5); WBC 6.89 X 10*3/uL (4.50-10.00)
[2022-02-03 23:00] LABS: African American GFR (CKD) 84.4 (60.0-200.0); Albumin 4.4 g/dL (3.8-4.9); Albumin/Globulin Ratio 2.1 (1.60-3.17); Anion Gap 16.4 mmol/L (10.00-18.00); BUN/Creat Ratio 14.9 Ratio (12.00-20.00); Blood Urea Nitrogen 12.9 mg/dL (9.0-27.0); Calcium 9.4 mg/dL (8.7-10.3); Carbon Dioxide 20.9 mmol/L (20.0-27.5); Globulin 2.1 g/dL (1.6-3.3); Non-African American GFR(CKD) 72.8 (60.0-200.0); Potassium 4.6 mmol/L (3.5-5.5); Total Bilirubin 0.6 mg/dL (0.30-1.20); Total Protein 6.5 g/dL (6.2-8.2)
== END | disposition home or self-care (01) ==
LOC: LABWHC1 14:10
PROVIDERS: ATTEND Family Medicine
DX: C19 Malignant neoplasm of rectosigmoid junction (principal)
CPT/HCPCS: 36415; 80053; 82378; 85027

== ENCOUNTER → 2022-03-04 | Outpatient (CLI) | payer MEDICARE ==
[2022-03-04 22:49] LABS: Basophils # (A) 0.06 X 10*3/uL (0.00-0.10); Basophils % (A) 0.6 %; Eosinophils # (A) 0.07 X 10*3/uL (0.04-0.35); Eosinophils % (A) 0.7 %; HCT 44.3 % (37.2-46.3); HGB 14.4 g/dL (12.0-15.0); Immature Grans, Automated 0.3 %; Lymphocytes # (A) 1.55 X 10*3/uL (0.90-5.00); Lymphocytes % (A) 16.4 %; MCH 33.2 pg (27.0-32.0); MCHC 32.5 g/dL (32.0-37.0); MCV 102.1 fL (80.0-97.0); Mean Platelet Volume 10.4 fL (9.5-12.2); Monocytes # (A) 1.06 X 10*3/uL (0.20-1.00); Monocytes % (A) 11.2 %; NRBC Per 100 WBC 0 /100 WBCS (0.0-0.0); Neutrophils # (A) 6.69 X 10*3/uL (1.80-7.70); Neutrophils % (A) 70.8 %; Platelet Count 381 X 10*3/uL (140-440); RBC 4.34 X 10*6/uL (4.10-5.20); RDW 12.8 % (11.5-14.5); WBC 9.46 X 10*3/uL (4.50-10.00)
[2022-03-05] LABS: African American GFR (CKD) 70.1 (60.0-200.0); Albumin 4.3 g/dL (3.8-4.9); Albumin/Globulin Ratio 1.79 (1.60-3.17); Anion Gap 14.5 mmol/L (10.00-18.00); BUN/Creat Ratio 10.4 Ratio (12.00-20.00); Blood Urea Nitrogen 10.5 mg/dL (9.0-27.0); Carbon Dioxide 24.7 mmol/L (20.0-27.5); Globulin 2.4 g/dL (1.6-3.3); Non-African American GFR(CKD) 60.5 (60.0-200.0); Potassium 4.6 mmol/L (3.5-5.5); Total Bilirubin 0.4 mg/dL (0.30-1.20); Total Protein 6.7 g/dL (6.2-8.2)
== END | disposition home or self-care (01) ==
LOC: LABWHC1 15:46
PROVIDERS: ATTEND Internal Medicine
DX: C20 Malignant neoplasm of rectum (principal)
CPT/HCPCS: 36415; 80053; 82378; 84156; 85025

== ENCOUNTER → 2022-03-31 | Outpatient (CLI) | payer MEDICARE ==
[2022-04-01 00:07] LABS: African American GFR (CKD) 83.3 (60.0-200.0); Albumin 4.2 g/dL (3.8-4.9); Albumin/Globulin Ratio 1.78 (1.60-3.17); Anion Gap 13.6 mmol/L (10.00-18.00); BUN/Creat Ratio 11.42 Ratio (12.00-20.00); Calcium 9.6 mg/dL (8.7-10.3); Carbon Dioxide 21.6 mmol/L (20.0-27.5); Globulin 2.4 g/dL (1.6-3.3); Non-African American GFR(CKD) 71.9 (60.0-200.0); Total Bilirubin 0.5 mg/dL (0.30-1.20); Total Protein 6.6 g/dL (6.2-8.2)
[2022-04-01 00:55] LABS: Basophils # (A) 0.07 X 10*3/uL (0.00-0.10); Basophils % (A) 0.9 %; Eosinophils % (A) 1.3 %; HCT 43.5 % (37.2-46.3); HGB 14.7 g/dL (12.0-15.0); Immature Grans, Automated 0.1 %; Lymphocytes # (A) 1.53 X 10*3/uL (0.90-5.00); Lymphocytes % (A) 20.4 %; MCH 32.5 pg (27.0-32.0); MCHC 33.8 g/dL (32.0-37.0); Monocytes # (A) 0.81 X 10*3/uL (0.20-1.00); Monocytes % (A) 10.8 %; NRBC Per 100 WBC 0 /100 WBCS (0.0-0.0); Neutrophils # (A) 4.97 X 10*3/uL (1.80-7.70); Neutrophils % (A) 66.5 %; Platelet Count 270 X 10*3/uL (140-440); RBC 4.53 X 10*6/uL (4.10-5.20); RDW 12.3 % (11.5-14.5); WBC 7.49 X 10*3/uL (4.50-10.00)
== END | disposition home or self-care (01) ==
LOC: LABWHC1 15:15
PROVIDERS: ATTEND Internal Medicine
DX: C20 Malignant neoplasm of rectum (principal)
CPT/HCPCS: 36415; 80053; 82378; 84156; 85025

== ENCOUNTER → 2022-08-11 | Outpatient (CLI) | payer MEDICARE ==
[2022-08-11 23:29] LABS: Basophils # (A) 0.08 X 10*3/uL (0.00-0.10); Basophils % (A) 0.7 %; Eosinophils # (A) 0.08 X 10*3/uL (0.04-0.35); Eosinophils % (A) 0.7 %; HCT 48.8 % (37.2-46.3); HGB 16.4 g/dL (12.0-15.0); Immature Grans, Automated 0.6 %; Lymphocytes # (A) 2.02 X 10*3/uL (0.90-5.00); Lymphocytes % (A) 17.4 %; MCH 32.9 pg (27.0-32.0); MCHC 33.6 g/dL (32.0-37.0); Mean Platelet Volume 9.9 fL (9.5-12.2); Monocytes # (A) 1.22 X 10*3/uL (0.20-1.00); Monocytes % (A) 10.5 %; NRBC Per 100 WBC 0 /100 WBCS (0.0-0.0); Neutrophils # (A) 8.13 X 10*3/uL (1.80-7.70); Neutrophils % (A) 70.1 %; Platelet Count 359 X 10*3/uL (140-440); RBC 4.98 X 10*6/uL (4.10-5.20); RDW 14.4 % (11.5-14.5)
[2022-08-11 23:36] LABS: African American GFR (CKD) 63.2 (60.0-200.0); Albumin 4.5 g/dL (3.8-4.9); Albumin/Globulin Ratio 1.96 (1.60-3.17); Anion Gap 14.6 mmol/L (10.00-18.00); BUN/Creat Ratio 17.09 Ratio (12.00-20.00); Blood Urea Nitrogen 18.8 mg/dL (9.0-27.0); Calcium 9.8 mg/dL (8.7-10.3); Carbon Dioxide 22.4 mmol/L (20.0-27.5); Globulin 2.3 g/dL (1.6-3.3); Non-African American GFR(CKD) 54.5 (60.0-200.0); Potassium 4.3 mmol/L (3.5-5.5); Total Bilirubin 0.6 mg/dL (0.30-1.20); Total Protein 6.8 g/dL (6.2-8.2)
== END | disposition home or self-care (01) ==
LOC: LABWHC1 16:27
PROVIDERS: ATTEND Internal Medicine
DX: C79.52 Secondary malignant neoplasm of bone marrow (principal); C20 Malignant neoplasm of rectum
CPT/HCPCS: 36415; 80053; 82378; 84156; 85025

== ENCOUNTER → 2022-09-04 | Outpatient (CLI) | payer MEDICARE ==
[2022-09-04 23:57] LABS: African American GFR (CKD) 80.5 (60.0-200.0); Albumin 4.3 g/dL (3.8-4.9); Albumin/Globulin Ratio 2.05 (1.60-3.17); Anion Gap 10.9 mmol/L (10.00-18.00); BUN/Creat Ratio 10.44 Ratio (12.00-20.00); Blood Urea Nitrogen 9.4 mg/dL (9.0-27.0); Calcium 9.4 mg/dL (8.7-10.3); Carbon Dioxide 25.1 mmol/L (20.0-27.5); Globulin 2.1 g/dL (1.6-3.3); Non-African American GFR(CKD) 69.5 (60.0-200.0); Potassium 4.1 mmol/L (3.5-5.5); Total Bilirubin 0.6 mg/dL (0.30-1.20); Total Protein 6.4 g/dL (6.2-8.2)
[2022-09-05 00:04] LABS: Basophils # (A) 0.06 X 10*3/uL (0.00-0.10); Basophils % (A) 0.9 %; Eosinophils # (A) 0.04 X 10*3/uL (0.04-0.35); Eosinophils % (A) 0.6 %; HCT 45.9 % (37.2-46.3); HGB 15.6 g/dL (12.0-15.0); Immature Grans, Automated 0.4 %; Lymphocytes # (A) 1.47 X 10*3/uL (0.90-5.00); MCH 33.3 pg (27.0-32.0); MCV 97.9 fL (80.0-97.0); Mean Platelet Volume 9.9 fL (9.5-12.2); Monocytes # (A) 0.65 X 10*3/uL (0.20-1.00); Monocytes % (A) 9.7 %; NRBC Per 100 WBC 0 /100 WBCS (0.0-0.0); Neutrophils # (A) 4.42 X 10*3/uL (1.80-7.70); Neutrophils % (A) 66.4 %; Platelet Count 351 X 10*3/uL (140-440); RBC 4.69 X 10*6/uL (4.10-5.20); RDW 13.1 % (11.5-14.5); WBC 6.67 X 10*3/uL (4.50-10.00)
== END | disposition home or self-care (01) ==
LOC: LABWHC1 13:54
PROVIDERS: ATTEND Internal Medicine
DX: C79.52 Secondary malignant neoplasm of bone marrow (principal); C20 Malignant neoplasm of rectum
CPT/HCPCS: 36415; 80053; 82378; 84156; 85025

== ENCOUNTER → 2022-09-29 | Outpatient (CLI) | payer MEDICARE, OTHER ==
[2022-09-29 19:00] LABS: Basophils # (A) 0.09 X 10*3/uL (0.00-0.10); Basophils % (A) 0.7 %; Eosinophils # (A) 0.02 X 10*3/uL (0.04-0.35); Eosinophils % (A) 0.2 %; HCT 46.4 % (37.2-46.3); HGB 15.4 g/dL (12.0-15.0); Immature Grans, Automated 0.6 %; Lymphocytes # (A) 1.82 X 10*3/uL (0.90-5.00); Lymphocytes % (A) 14.7 %; MCH 32.1 pg (27.0-32.0); MCHC 33.2 g/dL (32.0-37.0); MCV 96.7 fL (80.0-97.0); Monocytes % (A) 11.3 %; NRBC Per 100 WBC 0 /100 WBCS (0.0-0.0); Neutrophils # (A) 9.01 X 10*3/uL (1.80-7.70); Neutrophils % (A) 72.5 %; Platelet Count 346 X 10*3/uL (140-440); RDW 12.2 % (11.5-14.5); WBC 12.42 X 10*3/uL (4.50-10.00)
[2022-09-29 19:15] LABS: African American GFR (CKD) 61.8 (60.0-200.0); Albumin 4.3 g/dL (3.8-4.9); Albumin/Globulin Ratio 2.09 (1.60-3.17); Anion Gap 15.8 mmol/L (10.00-18.00); BUN/Creat Ratio 12.59 Ratio (12.00-20.00); Blood Urea Nitrogen 14.1 mg/dL (9.0-27.0); Calcium 9.3 mg/dL (8.7-10.3); Carbon Dioxide 17.6 mmol/L (20.0-27.5); Non-African American GFR(CKD) 53.4 (60.0-200.0); Potassium 4.6 mmol/L (3.5-5.5); Total Bilirubin 0.7 mg/dL (0.30-1.20); Total Protein 6.3 g/dL (6.2-8.2)
== END | disposition home or self-care (01) ==
LOC: LABWHC1 14:22
PROVIDERS: ATTEND Internal Medicine
DX: C20 Malignant neoplasm of rectum (principal); C79.52 Secondary malignant neoplasm of bone marrow
CPT/HCPCS: 36415; 80053; 82378; 84156; 85025

== ENCOUNTER → 2022-10-14 | Outpatient (CLI) | payer MEDICARE, OTHER ==
--- NOTE | 2022-10-14 16:21 | CT ---
EXAMINATION TYPE: CT angio chest DATE OF EXAM: 10/14/2022 COMPARISON: 03/01/2021 HISTORY: chest pain CT DLP: 578 mGycm CONTRAST: CT chest with contrast and 3D reconstruction with MIP imaging is performed with IV Contrast, patient injected with 86cc mL of Isovue 370. Contrast-enhanced CT of the chest was performed through the course of the pulmonary arteries with aneudy g and mediastinal window settings submitted. 3D reconstruction with MIP imaging was also performed. PULMONARY ARTERIES: The pulmonary arteries and their major tributaries are patent. I do not see blacna dence for sizable filling defect to suggest pulmonary embolic process. LUNGS: Cavitary spiculated nodule left upper lobe measures 2.4 cm AP dimension versus 2.4 [address] Cavitary pleural-based nodule right upper lobe measures 1.1 cm versus 1.1 cm previously. Addition al pleural-based 5 mm nodule right upper lobe is stable. MEDIASTINUM: Thoracic aorta is of normal caliber,however, evaluation is limited given timing of the contrast bolus. If there is concern for thoracic aortic pathology consider MIGUEL. Correlate clinicall y . The heart is not enlarged. No evidence for mediastinal mass. No mediastinal lymph nodes greater than 1cm. HILAR STRUCTURES: No evidence for mass. No hilar lymph nodes greater than 1 cm. UPPER ABDOMEN: No significant abnormality is seen. IMPRESSION: 1. No evidence for Pulmonary embolism at this time. 2. Pulmonary nodules as discussed.
== END | disposition home or self-care (01) ==
LOC: RADCTMAIN 15:23
PROVIDERS: ATTEND Family Medicine
DX: R91.8 Other nonspecific abnormal finding of lung field (principal); R07.89 Other chest pain
CPT/HCPCS: 71275; Q9967

== ENCOUNTER → 2022-10-22 | Outpatient (CLI) | payer MEDICARE, OTHER ==
[2022-10-22 14:35] LABS: Protein/Creatinine Ratio,Urine 0.034
[2022-10-22 18:32] LABS: Basophils # (A) 0.06 X 10*3/uL (0.00-0.10); Basophils % (A) 0.7 %; Eosinophils # (A) 0.03 X 10*3/uL (0.04-0.35); Eosinophils % (A) 0.3 %; HCT 43.4 % (37.2-46.3); Immature Grans, Automated 0.6 %; Lymphocytes # (A) 1.64 X 10*3/uL (0.90-5.00); Lymphocytes % (A) 18.8 %; MCH 32.5 pg (27.0-32.0); MCHC 32.3 g/dL (32.0-37.0); MCV 100.7 fL (80.0-97.0); Mean Platelet Volume 10.4 fL (9.5-12.2); Monocytes # (A) 1.02 X 10*3/uL (0.20-1.00); Monocytes % (A) 11.7 %; NRBC Per 100 WBC 0 /100 WBCS (0.0-0.0); Neutrophils # (A) 5.93 X 10*3/uL (1.80-7.70); Neutrophils % (A) 67.9 %; Platelet Count 264 X 10*3/uL (140-440); RBC 4.31 X 10*6/uL (4.10-5.20); RDW 13.7 % (11.5-14.5); WBC 8.73 X 10*3/uL (4.50-10.00)
[2022-10-22 18:34] LABS: ALT 17 U/L (8-44); AST 19 U/L (13-35); African American GFR (CKD) 80.5 (60.0-200.0); Albumin 3.6 g/dL (3.8-4.9); Albumin/Globulin Ratio 1.71 (1.60-3.17); Alkaline Phosphatase 70 U/L (41-126); BUN/Creat Ratio 15.11 Ratio (12.00-20.00); Blood Urea Nitrogen 13.6 mg/dL (9.0-27.0); Calcium 9.5 mg/dL (8.7-10.3); Carbon Dioxide 26.4 mmol/L (20.0-27.5); Chloride 103 mmol/L (96-109); Chol/HDL Ratio 4.28 Ratio; Globulin 2.1 g/dL (1.6-3.3); Glucose 94 mg/dL (70-110); LDL Cholesterol,Calculated 122.9 mg/dL (0.0-131.0); Non-African American GFR(CKD) 69.5 (60.0-200.0); Potassium 4.1 mmol/L (3.5-5.5); Sodium 139 mmol/L (135-145); Total Protein 5.7 g/dL (6.2-8.2)
== END | disposition home or self-care (01) ==
LOC: LABWHC1 12:00
PROVIDERS: ATTEND Nurse Practitioner Adult Health
DX: C79.52 Secondary malignant neoplasm of bone marrow (principal); C20 Malignant neoplasm of rectum; I10 Essential (primary) hypertension; R33.9 Retention of urine, unspecified
CPT/HCPCS: 36415; 80053; 80061; 82378; 82570; 83036; 84156; 85025

== ENCOUNTER → 2022-12-25 | Outpatient (CLI) | payer MEDICARE, OTHER ==
[2022-12-26 03:16] LABS: African American GFR (CKD) 103.7 (60.0-200.0); Albumin 3.5 g/dL (3.8-4.9); Albumin/Globulin Ratio 1.53 (1.60-3.17); Anion Gap 11.4 mmol/L (10.00-18.00); BUN/Creat Ratio 9.15 Ratio (12.00-20.00); Blood Urea Nitrogen 6.6 mg/dL (9.0-27.0); Calcium 9.7 mg/dL (8.7-10.3); Carbon Dioxide 24.6 mmol/L (20.0-27.5); Globulin 2.3 g/dL (1.6-3.3); Non-African American GFR(CKD) 89.5 (60.0-200.0); Potassium 3.8 mmol/L (3.5-5.5); Total Bilirubin 0.3 mg/dL (0.30-1.20); Total Protein 5.8 g/dL (6.2-8.2)
[2022-12-26 03:51] LABS: Basophils # (A) 0.07 X 10*3/uL (0.00-0.10); Basophils % (A) 0.6 %; Eosinophils # (A) 0.08 X 10*3/uL (0.04-0.35); Eosinophils % (A) 0.7 %; HCT 35.1 % (37.2-46.3); HGB 11.2 g/dL (12.0-15.0); Immature Grans, Automated 3.7 %; Lymphocytes # (A) 2.12 X 10*3/uL (0.90-5.00); Lymphocytes % (A) 18.9 %; MCH 31.2 pg (27.0-32.0); MCHC 31.9 g/dL (32.0-37.0); MCV 97.8 fL (80.0-97.0); Monocytes # (A) 1.42 X 10*3/uL (0.20-1.00); Monocytes % (A) 12.7 %; NRBC Per 100 WBC 0 /100 WBCS (0.0-0.0); Neutrophils % (A) 63.4 %; Platelet Count 508 X 10*3/uL (140-440); RBC 3.59 X 10*6/uL (4.10-5.20); WBC 11.21 X 10*3/uL (4.50-10.00)
== END | disposition home or self-care (01) ==
LOC: LABWHC1 16:04
PROVIDERS: ATTEND Colon & Rectal Surgery
DX: C20 Malignant neoplasm of rectum (principal); C79.52 Secondary malignant neoplasm of bone marrow
CPT/HCPCS: 36415; 80053; 82378; 85025

== ENCOUNTER → 2023-01-22 | Outpatient (CLI) | payer MEDICARE, OTHER ==
[2023-01-22 21:02] LABS: African American GFR (CKD) 96.9 (60.0-200.0); Albumin 4.2 g/dL (3.8-4.9); Albumin/Globulin Ratio 1.69 (1.60-3.17); Anion Gap 12.5 mmol/L (10.00-18.00); BUN/Creat Ratio 9.47 Ratio (12.00-20.00); Blood Urea Nitrogen 7.3 mg/dL (9.0-27.0); Calcium 9.5 mg/dL (8.7-10.3); Globulin 2.5 g/dL (1.6-3.3); Non-African American GFR(CKD) 83.6 (60.0-200.0); Potassium 3.5 mmol/L (3.5-5.5); Total Bilirubin 0.4 mg/dL (0.30-1.20); Total Protein 6.6 g/dL (6.2-8.2)
[2023-01-22 21:03] LABS: Basophils # (A) 0.02 X 10*3/uL (0.00-0.10); Basophils % (A) 0.4 %; Eosinophils # (A) 0.02 X 10*3/uL (0.04-0.35); Eosinophils % (A) 0.4 %; HGB 12.4 g/dL (12.0-15.0); Immature Grans, Automated 0.4 %; Lymphocytes # (A) 1.55 X 10*3/uL (0.90-5.00); Lymphocytes % (A) 28.2 %; MCH 31.2 pg (27.0-32.0); MCHC 31.8 g/dL (32.0-37.0); Mean Platelet Volume 10.2 fL (9.5-12.2); Monocytes # (A) 0.26 X 10*3/uL (0.20-1.00); Monocytes % (A) 4.7 %; NRBC Per 100 WBC 0 /100 WBCS (0.0-0.0); Neutrophils # (A) 3.62 X 10*3/uL (1.80-7.70); Neutrophils % (A) 65.9 %; Platelet Count 300 X 10*3/uL (140-440); RBC 3.98 X 10*6/uL (4.10-5.20); WBC 5.49 X 10*3/uL (4.50-10.00)
== END | disposition home or self-care (01) ==
LOC: LABWHC1 14:22
PROVIDERS: ATTEND Internal Medicine
DX: C20 Malignant neoplasm of rectum (principal); C79.52 Secondary malignant neoplasm of bone marrow
CPT/HCPCS: 36415; 80053; 82378; 84156; 85025

== ENCOUNTER → 2023-02-11 | Outpatient (CLI) | payer MEDICARE, OTHER ==
[2023-02-12 02:17] LABS: Basophils # (A) 0.03 X 10*3/uL (0.00-0.10); Basophils % (A) 0.8 %; Eosinophils # (A) 0.01 X 10*3/uL (0.04-0.35); Eosinophils % (A) 0.3 %; HCT 38.1 % (37.2-46.3); HGB 12.3 g/dL (12.0-15.0); Immature Grans, Automated 0.3 %; Lymphocytes # (A) 1.35 X 10*3/uL (0.90-5.00); Lymphocytes % (A) 35.9 %; MCH 32.4 pg (27.0-32.0); MCHC 32.3 g/dL (32.0-37.0); MCV 100.3 fL (80.0-97.0); Monocytes # (A) 0.52 X 10*3/uL (0.20-1.00); Monocytes % (A) 13.8 %; NRBC Per 100 WBC 0 /100 WBCS (0.0-0.0); Neutrophils # (A) 1.84 X 10*3/uL (1.80-7.70); Neutrophils % (A) 48.9 %; Platelet Count 295 X 10*3/uL (140-440); RDW 17.4 % (11.5-14.5); WBC 3.76 X 10*3/uL (4.50-10.00)
[2023-02-12 03:02] LABS: African American GFR (CKD) 106.5 (60.0-200.0); Albumin/Globulin Ratio 1.87 (1.60-3.17); Anion Gap 12.5 mmol/L (10.00-18.00); BUN/Creat Ratio 7.7 Ratio (12.00-20.00); Blood Urea Nitrogen 5.5 mg/dL (9.0-27.0); Calcium 9.7 mg/dL (8.7-10.3); Carbon Dioxide 23.4 mmol/L (20.0-27.5); Globulin 2.1 g/dL (1.6-3.3); Non-African American GFR(CKD) 91.9 (60.0-200.0); Potassium 4.1 mmol/L (3.5-5.5); Total Bilirubin 0.3 mg/dL (0.30-1.20); Total Protein 6.1 g/dL (6.2-8.2)
== END | disposition home or self-care (01) ==
LOC: LABWHC1 16:12
PROVIDERS: ATTEND Internal Medicine
DX: C20 Malignant neoplasm of rectum (principal)
CPT/HCPCS: 36415; 80053; 82378; 84156; 85025

== ENCOUNTER → 2023-03-20 | Outpatient (CLI) | payer MEDICARE, OTHER ==
[2023-03-20 22:27] LABS: ALT 28 U/L (4-34); AST 33 U/L (14-36); African American GFR (CKD) >90 (>60 ml/min/1.73 sqM); Albumin 4.3 g/dL (3.5-5.0); Albumin/Globulin Ratio 1.5; Alkaline Phosphatase 51 U/L (38-126); Anion Gap 9 mmol/L; Blood Urea Nitrogen 10 mg/dL (7-17); Calcium 9.2 mg/dL (8.4-10.2); Carbon Dioxide 23 mmol/L (22-30); Chloride 102 mmol/L (98-107); Globulin 2.9 g/dL; Non-African American GFR(CKD) >90 (>60 ml/min/1.73 sqM); Sodium 134 mmol/L (137-145); Total Bilirubin 0.7 mg/dL (0.2-1.3); Total Protein 7.2 g/dL (6.3-8.2)
[2023-03-21 01:50] LABS: Basophils # (A) 0.05 X 10*3/uL (0.00-0.10); Basophils % (A) 0.8 %; Eosinophils # (A) 0.01 X 10*3/uL (0.04-0.35); Eosinophils % (A) 0.2 %; HCT 41.7 % (37.2-46.3); HGB 13.9 d/dL (12.0-15.0); Lymphocytes % (A) 21.9 %; MCH 33.6 pg (27.0-32.0); MCHC 33.3 d/dL (32.0-37.0); MCV 100.7 FL (80.0-97.0); Monocytes # (A) 0.35 X 10*3/uL (0.20-1.00); Monocytes % (A) 5.9 %; NRBC Per 100 WBC 0 X 10*3/uL (0.00-0.01); Neutrophils % (A) 70.7 %; Platelet Count 198 X 10*3/uL (140-440); RBC 4.14 X 10*6/uL (4.10-5.20); RDW 17.8 % (11.5-14.5); WBC 5.94 X 10*3/uL (4.50-10.00)
== END | disposition home or self-care (01) ==
LOC: LABWHC1 15:46
PROVIDERS: ATTEND Internal Medicine
DX: C20 Malignant neoplasm of rectum (principal)
CPT/HCPCS: 36415; 80053; 82378; 84156; 85025

== ENCOUNTER → 2023-04-29 | Outpatient (CLI) | payer MEDICARE, OTHER ==
[2023-04-29 17:10] LABS: Basophils # (A) 0.01 X 10*3/uL (0.00-0.10); Basophils % (A) 0.3 %; Eosinophils # (A) 0 X 10*3/uL (0.04-0.35); Eosinophils % (A) 0 %; HCT 30.4 % (37.2-46.3); Lymphocytes # (A) 0.88 X 10*3/uL (0.90-5.00); Lymphocytes % (A) 28.1 %; MCH 34.5 pg (27.0-32.0); MCHC 32.9 d/dL (32.0-37.0); MCV 104.8 FL (80.0-97.0); Mean Platelet Volume 10.4 FL (9.5-12.2); Monocytes # (A) 0.43 X 10*3/uL (0.20-1.00); Monocytes % (A) 13.7 %; NRBC Per 100 WBC 0 X 10*3/uL (0.00-0.01); Neutrophils # (A) 1.78 X 10*3/uL (1.80-7.70); Neutrophils % (A) 56.9 %; Platelet Count 221 X 10*3/uL (140-440); RDW 20.3 % (11.5-14.5); WBC 3.13 X 10*3/uL (4.50-10.00)
== END | disposition home or self-care (01) ==
LOC: LABWHC1 11:00
PROVIDERS: ATTEND Internal Medicine
DX: C20 Malignant neoplasm of rectum (principal); C79.52 Secondary malignant neoplasm of bone marrow; M46.1 Sacroiliitis, not elsewhere classified
CPT/HCPCS: 36415; 85025

== ENCOUNTER → 2023-05-07 | Outpatient (CLI) | payer MEDICARE, OTHER ==
[2023-05-07 20:44] LABS: HCT 33.1 % (37.2-46.3); HGB 11.2 d/dL (12.0-15.0); MCH 36.2 pg (27.0-32.0); MCHC 33.8 d/dL (32.0-37.0); MCV 107.1 FL (80.0-97.0); Mean Platelet Volume 9.8 FL (9.5-12.2); NRBC Per 100 WBC 0 X 10*3/uL (0.00-0.01); Platelet Count 425 X 10*3/uL (140-440); RBC 3.09 X 10*6/uL (4.10-5.20); RDW 20.6 % (11.5-14.5); WBC 5.65 X 10*3/uL (4.50-10.00)
[2023-05-07 21:13] LABS: Basophils # (A) 0.02 X 10*3/uL (0.00-0.10); Basophils % (A) 0.4 %; Crenated RBC 2+; Eosinophils # (A) 0 X 10*3/uL (0.04-0.35); Eosinophils % (A) 0 %; Lymphocytes # (A) 1.45 X 10*3/uL (0.90-5.00); Lymphocytes % (A) 25.7 %; Macrocytosis (M) 2+; Monocytes % (A) 12.4 %; Neutrophils # (A) 3.46 X 10*3/uL (1.80-7.70); Neutrophils % (A) 61.1 %
[2023-05-07 21:24] LABS: ALT 24 U/L (8-44); AST 34 U/L (13-35); Albumin 4.1 d/dL (3.8-4.9); Albumin/Globulin Ratio 2.05 Ratio (1.60-3.17); Alkaline Phosphatase 59 U/L (41-126); Blood Urea Nitrogen 7.2 mg/dL (9.0-27.0); Carbon Dioxide 21.8 mmol/L (21.6-31.8); Chloride 98 mmol/L (96-109); Glucose 101 mg/dL (70-110); Potassium 4.6 mmol/L (3.5-5.5); Sodium 134 mmol/L (135-145); Total Bilirubin 0.2 mg/dL (0.3-1.2); Total Protein 6.1 d/dL (6.2-8.2)
== END | disposition home or self-care (01) ==
LOC: LABWHC1 12:55
PROVIDERS: ATTEND Internal Medicine
DX: C20 Malignant neoplasm of rectum (principal); C79.52 Secondary malignant neoplasm of bone marrow
CPT/HCPCS: 36415; 80053; 82306; 82378; 85025

== ENCOUNTER → 2023-06-05 | Outpatient (CLI) | payer MEDICARE, OTHER ==
[2023-06-05 20:58] LABS: ALT 16 U/L (8-44); AST 24 U/L (13-35); Albumin 4.2 d/dL (3.8-4.9); Alkaline Phosphatase 60 U/L (41-126); Blood Urea Nitrogen 12.1 mg/dL (9.0-27.0); Calcium 9.6 mg/dL (8.7-10.3); Carbon Dioxide 25.9 mmol/L (21.6-31.8); Chloride 100 mmol/L (96-109); Globulin 2.1 d/dL (1.6-3.3); Glucose 82 mg/dL (70-110); Potassium 4.9 mmol/L (3.5-5.5); Sodium 138 mmol/L (135-145); Total Bilirubin 0.3 mg/dL (0.3-1.2); Total Protein 6.3 d/dL (6.2-8.2)
[2023-06-05 21:19] LABS: Basophils # (A) 0.05 X 10*3/uL (0.00-0.10); Basophils % (A) 0.5 %; Eosinophils # (A) 0.04 X 10*3/uL (0.04-0.35); Eosinophils % (A) 0.4 %; HCT 40.1 % (37.2-46.3); Lymphocytes % (A) 14.4 %; MCHC 32.4 d/dL (32.0-37.0); MCV 108.1 FL (80.0-97.0); Mean Platelet Volume 9.7 FL (9.5-12.2); Monocytes # (A) 1.14 X 10*3/uL (0.20-1.00); Monocytes % (A) 10.9 %; NRBC Per 100 WBC 0 X 10*3/uL (0.00-0.01); Neutrophils # (A) 7.67 X 10*3/uL (1.80-7.70); Neutrophils % (A) 73.4 %; Platelet Count 301 X 10*3/uL (140-440); RBC 3.71 X 10*6/uL (4.10-5.20); RDW 14.7 % (11.5-14.5); WBC 10.44 X 10*3/uL (4.50-10.00)
== END | disposition home or self-care (01) ==
LOC: LABWHC1 14:20
PROVIDERS: ATTEND Internal Medicine
DX: C20 Malignant neoplasm of rectum (principal); C79.52 Secondary malignant neoplasm of bone marrow
CPT/HCPCS: 36415; 80053; 82306; 82378; 85025

== ENCOUNTER → 2023-10-08 | Outpatient (CLI) | payer MEDICARE, OTHER ==
--- NOTE | 2023-10-09 16:38 | PE ---
EXAMINATION TYPE: PET CT fusion skull to thigh DATE OF EXAM: 10/08/2023 CLINICAL INDICATION:Female, 62 years old with history of C20 RECTAL CANCER; TECHNIQUE: Following the intravenous administration of 9.68 mCi of F-18 FDG, whole body images are performed from the skull base to the midthigh. Images are reviewed on the computer in the coronal, a xial, and sagittal planes. Reconstructed rotating images are created on independent workstation and reviewed on the computer. A non-contrast CT is performed in conjunction with the PET scan. Glucose level 82 mg/dL CT DLP: 214 mGycm, Automated exposure control for dose reduction was used. COMPARISON: CT 03/01/2021, 04/13/2023, PET/CT 12/10/2019, FINDINGS: Mediastinal SUV mean is 2.4. Hepatic parenchyma SUV mean is 2. Benign. SKULL BASE AND NECK: FDG avid left carotid gland lesion max SUV 24.9 measuring 10 mm in short axis. Previously max SUV 4.4 . CHEST, MEDIASTINUM, AND HILAR REGION: Abnormal FDG activity in the thorax: * Left upper cavitating lesion axis max SUV 8.2 measuring 2.9 x 2.8 cm. * Right upper lobe lesion with cavitation max SUV 10.5 measuring 15 x 11.5 mm. * AP window enlarged lymph node measuring 21 x 33 mm max SUV 6.9. * Abnormal FDG activity in the right pulmonary hilum max SUV 4.3 and in the left pulmonary hilum max SUV 4.9. The lesions in the chest have all increased in size from 2020. ABDOMEN AND PELVIS: * Abnormal FDG activity within the liver max SUV 6.4 measuring 3.5 cm. * Uptake around the anus max SUV 7.4. MUSCULOSKELETAL STRUCTURES: No suspicious radiotracer activity. OTHER CT: Right lower quadrant ostomy present. Severe atherosclerosis of the arterial vasculature. Ri ght nonobstructing calculus measuring 4 mm. Left renal cyst. IMPRESSION: * Evidence of metastatic disease with multiple cavitating pulmonary nodules which have increased in size, mediastinal FDG avid lymph nodes which have increased in size, and a new right hepatic lobe mas s. * A left parotid lesion has increased metabolic activity and could represent another site of maligna ncy versus a with primary parotid gland tumor. * Abnormal uptake around the anus could be physiologic.
== END | disposition home or self-care (01) ==
LOC: RADPETMAIN 11:36
PROVIDERS: ATTEND Internal Medicine
DX: C79.52 Secondary malignant neoplasm of bone marrow (principal); C78.00 Secondary malignant neoplasm of unspecified lung; C20 Malignant neoplasm of rectum; K11.8 Other diseases of salivary glands; R16.0 Hepatomegaly, not elsewhere classified
CPT/HCPCS: 78815; A9552

== ENCOUNTER → 2024-04-15 | Outpatient (CLI) | payer MEDICARE, OTHER ==
--- NOTE | 2024-04-20 14:44 | PE ---
EXAMINATION TYPE: PET CT fusion skull to thigh DATE OF EXAM: 04/15/2024 COMPARISON: No recent pertinent CT. Prior PET/CT: 10/08/2023 HISTORY: Rectal cancer TECHNIQUE: Following the intravenous administration of 9.82 mCi of F-18 FDG, whole body images are p erformed from the skull base to the midthigh. Images are reviewed on the computer in the coronal, ax ial, and sagittal planes. Reconstructed rotating images are created on independent workstation and r eviewed on the computer. A localization and attenuation correction CT is performed in conjunction w ith the PET scan. DLP: 504.59 mGycm SCAN: Subsequent Blood glucose: 86 mg/dL Average Mediastinum SUV: 1.76 Average Liver SUV: 2.52 FINDINGS: NECK: There is a small focus of radiotracer within the lateral left parotid gland may be a small met astatic lesion, image 27, SUV 6.21. There is intense uptake within the focus of radiotracer inferior left parotid region, SUV 19.71, image 36. There is a small focus radiotracer posterior right vocal co rd level, image 59, SUV 8.04. THORAX: There is some uptake within a small lymph node in the superior mediastinum, image 77, SUV 4.1 1. There is uptake within nodular density anterior left apex, SUV 6.91, image 80 there is uptake within density lateral right upper lung field, image 84, SUV 4.08 There are some mild uptake within the periaortic lymph node near the arch, image 86, SUV 3.57 ABDOMEN: There is uptake within the right lobe liver, image 134, SUV 7.08 PELVIS: No suspicious uptake OSSEOUS STRUCTURES: No abnormal uptake LOCALIZATION CT: There is an ostomy in the right lower quadrant. Some diverticular changes within the colon. No suspicious presacral mass. COMPARISON: Uptake within the inferior left parotid gland was present previously. The more anterior s uperior uptake within the left parotid gland may be new. Uptake within the vocal cord level is dimini shed from comparison. Uptake within the lung masses was present previously. The lymph node in the per iaortic region is significantly diminished in size over the interval. The hepatic lesion appears smal ler although slight increase in SUV value. IMPRESSION: 1. Persistent uptake within upper lobe lung lesions. 2. Diminished size of periaortic arch lymph node. 3. Diminished size with slight increase is seen in the right hepatic lesion. 4. Persistent left parotid region metastasis. New lesion may be more superior anterior left parotid.
== END | disposition home or self-care (01) ==
LOC: RADPETMAIN 10:42
PROVIDERS: ATTEND Internal Medicine
DX: C20 Malignant neoplasm of rectum (principal); C07 Malignant neoplasm of parotid gland; R91.8 Other nonspecific abnormal finding of lung field; K76.9 Liver disease, unspecified
CPT/HCPCS: 78815; A9552

== ENCOUNTER → 2024-08-04 | Outpatient (CLI) | payer MEDICARE, OTHER ==
--- NOTE | 2024-08-05 11:26 | PE ---
EXAMINATION TYPE: PET CT fusion skull to thigh DATE OF EXAM: 08/04/2024 CLINICAL INDICATION:Female, 63 years old with history of C20 MALIGNANT NEOPLASM OF RECTUM; TECHNIQUE: Following the intravenous administration of 10.55 mCi of F-18 FDG, whole body images are performed from the skull base to the midthigh. Images are reviewed on the computer in the coronal, axial, and sagittal planes. Reconstructed rotating images are created on independent workstation and reviewed on the computer. A non-contrast CT is performed in conjunction with the PET scan. Glucose level 96 mg/dL CT DLP: 728.52 mGycm, Automated exposure control for dose reduction was used. COMPARISON: CT 04/13/2023, 10/14/2022, 03/01/2021, PET/CT 04/15/2024, 10/08/2023, 05/28/2023, 02/12/2023, 08/28/2022, MRI: None FINDINGS: Mediastinal SUV mean is 2.4. Hepatic parenchyma SUV mean is 3.6. SKULL BASE AND NECK: There are 2 relatively stable size lesions within the left parotid gland measuring 1.2 and 0.5 cm wit h a maximum SUV of 21.6 and 7.1, respectively. Previously 19.7 and 6.2 SUV respectively. CHEST, MEDIASTINUM, AND HILAR REGION: Left superior mediastinal 1.3 cm FDG avid lymph node with a maximum SUV of 9.1, previously measured 1 .0 cm with a maximum SUV of 5.0. Left prevascular space 1.5 cm enlarged lymph node with central calcifications. Stable size. Demonstra sanna max SUV of 4.2. Previously measured 3.8. Anterior left upper lobe 3.3 x 2.6 cm FDG avid mass with a maximum SUV of 15.2. Previously measured 2 .6 cm with a maximum SUV of 7.4. There is some subcentimeter focal FDG uptake identified within the left superior perihilar region wit h a maximum SUV of 6.5. Lateral right upper lobe 2.4 cm FDG avid pulmonary lesion with a maximum SUV of 14.8. Previously stefany ured 1.5 cm with a maximum SUV of 4.1. Adjacent superior satellite nodular density measuring up to 1 cm with a maximum SUV of 4.8. ABDOMEN AND PELVIS: Ill-defined hypodense posterior right hepatic lobe 5.7 cm lesion with some central calcifications. Th is demonstrates FDG radiotracer uptake with a maximum SUV of 16.1. Previously measured 3.2 cm with a maximum SUV of 7.5. Postsurgical changes with right lower quadrant ostomy. Postsurgical changes of the rectum. There is s ome minimal FDG uptake around the anus which is favored to be physiologic. MUSCULOSKELETAL STRUCTURES: No suspicious radiotracer activity. OTHER CT: Bilateral carotid bulb calcifications. Right chest wall subclavian approach Mediport cathet er distal tip terminating at the superior cavoatrial junction. Atherosclerotic calcification of the a senia and its branches. Nonobstructive right renal calculus. Few scattered colonic diverticula. Left a nterior abdominal wall neurostimulator power pack identified. IMPRESSION: 1. Overall progression of disease with increase in size and FDG radiotracer uptake within the bilater al metastatic pulmonary nodules/masses, mediastinal metastatic adenopathy, and the dominant metastati c right hepatic mass. 2. Stable 2 FDG avid lesions within the left parotid gland. Could represent metastatic disease versus primary parotid gland tumors. [facility], , 08/05/2024 11:24 AM
== END | disposition home or self-care (01) ==
LOC: RADPETMAIN 10:36
PROVIDERS: ATTEND Internal Medicine
DX: C20 Malignant neoplasm of rectum (principal); C78.02 Secondary malignant neoplasm of left lung; R16.0 Hepatomegaly, not elsewhere classified
CPT/HCPCS: 78815; A9552

== ENCOUNTER → 2024-12-06 | Outpatient (CLI) | payer MEDICARE, OTHER ==
--- NOTE | 2024-12-06 13:11 | XR ---
EXAMINATION TYPE: XR chest 2V DATE OF EXAM: 12/06/2024 12:58 PM COMPARISON: Chest radiographs from 11/26/2018. CLINICAL INDICATION: Female, 64 years old with history of C20, R91.1, G62.0, K58.9; [facility] TECHNIQUE: XR chest 2V Frontal and lateral views of the chest. FINDINGS: Lungs/Pleura: Left upper suprahilar opacity possibly representing lung cancer not definitely seen on 11/26/2018. There is no evidence of pleural effusion, focal consolidation, or pneumothorax. Pulmonary vascularity: Unremarkable. Heart/mediastinum: Cardiomediastinal silhouette is unremarkable. Musculoskeletal: No acute osseous pathology. Right chest wall [id number] tip terminating superior vena cava. IMPRESSION: Left upper suprahilar opacity possibly representing lung cancer not definitely seen on 11/26/2018. [facility], , 12/06/2024 1:09 PM
== END | disposition home or self-care (01) ==
LOC: RADXRMAIN 12:34
PROVIDERS: ATTEND Internal Medicine
DX: C20 Malignant neoplasm of rectum (principal); G62.0 Drug-induced polyneuropathy; K58.9 Irritable bowel syndrome, unspecified; R91.8 Other nonspecific abnormal finding of lung field
CPT/HCPCS: 71046

== ENCOUNTER → 2025-02-28 | Outpatient (CLI) | payer MEDICARE, OTHER ==
[2025-02-28 10:43] LABS: African American GFR (CKD) 75 (>60 ml/min/1.73 sqM); Blood Urea Nitrogen 6 mg/dL (7-17); Non-African American GFR(CKD) 65 (>60 ml/min/1.73 sqM)
--- NOTE | 2025-02-28 13:59 | CT ---
EXAMINATION TYPE: CT ChestAbdPelvis w con CT DLP: 891.6 mGycm, Automated exposure control for dose reduction was used. DATE OF EXAM: 02/28/2025 12:29 PM COMPARISON: PET CT 08/04/2024, 04/15/2024, 10/08/2023, CTA chest 10/14/2022, CT chest abdomen and pelvis 03/01/2021 CLINICAL INDICATION:Female, 64 years old with history of C80.1 MALIGNANT (PRIMARY) NEOPLASM, UNSPECIF IED; PHH, Metastatic Cancer Technique: Multiple axial images of the chest, abdomen, and pelvis were obtained following the intrav enous administration of 100 mL Isovue-300. Oral contrast was administered. Two-dimensional coronal an d sagittal reconstructions were obtained. Findings: CHEST: LUNGS/ PLEURA: No pleural effusion, pneumothorax, focal consolidation. Similar lobulated solid mass w ithin the anterior left upper lobe measuring 3.3 x 2.6 cm, previously 3.3 x 2.6 cm. Additional stable peripheral right upper lobe nodular opacity measuring up to 1.8 cm. Few new pulmonary nodules with e xamples including a left apical 3.9 mm pulmonary nodule (series 5, image 8) and a right lower lobe latif bpleural 5.8 mm pulmonary nodule (series 5, images 49). AIRWAY: Patent and unremarkable.. HEART: Size within normal limits. . No pericardial effusion. No significant coronary artery calcifica tions. MEDIASTINUM: Enlarged left superior mediastinal 2.3 cm lymph node with some calcification. Imaging FD G activity in prior PET/CT. Enlarged 1.7 cm precarinal lymph node, previously measured 1.5 cm. Enlarg ed superior left hilar lymph node measuring up to 2.5 cm which is not well-visualized in prior exam. Enlarged right hilar lymph node measuring up to 1.8 cm which is not well-visualized prior exam. VASCULATURE: No aortic aneurysm. No definitive pulmonary embolism. Right anterior chest wall Medipor t catheter IJ approach terminating at the low SVC. Mild atherosclerotic calcification of the aorta an d its branches. Mild stenosis at the origin of the left subclavian artery secondary to noncalcified p laque. MUSCULOSKELETAL: No acute osseous abnormalities. No aggressive osseous lesion. SOFT TISSUES/LYMPH NODES: Unremarkable. LOWER NECK: No significant findings. ABDOMEN: ABDOMEN LIVER: Noncirrhotic morphology. Redemonstration of heterogenous hypodense lesion within the right hep atic lobe measuring 7.0 x 6.1 cm. There is some internal calcification identified. Demonstrated FDG a ctivity in prior PET/CT. Additional 1.9 cm hypodense lesion within the central right hepatic lobe. Ad ditional subcentimeter hypodense focus of the periphery of the right hepatic lobe. GALLBLADDER AND BILE DUCTS: Unremarkable. PANCREAS: Unremarkable. SPLEEN: Unremarkable. ADRENAL GLANDS: Unremarkable. KIDNEYS AND URETERS: No evidence of hydronephrosis. No left renal calculi. Nonobstructing right renal lower pole 5 mm calculus. The kidneys enhanced symmetrically. Left mid kidney 2.1 cm simple appearin g cyst. No follow-up recommended. PELVIS BLADDER: Unremarkable REPRODUCTIVE: Unremarkable. ABDOMEN & PELVIS STOMACH AND BOWEL: Stomach and duodenum are unremarkable. Post surgical changes with anterior right l ower abdominal wall diverticula ileostomy. Postsurgical changes at the rectum. Enteric contrast reach es the ostomy. No focal bowel wall thickening or surrounding inflammatory changes. No evidence of bow el obstruction. PERITONEUM: No evidence of pneumoperitoneum or free fluid. Similar presacral soft tissue thickening. VASCULATURE: Mild atherosclerotic calcifications are present throughout the abdominal aorta and its b ranches. No abdominal aortic aneurysm. MUSCULOSKELETAL: No acute osseous abnormalities. Previous bilateral SI joint screws which have been r emoved. No aggressive osseous lesion. Mild multilevel degenerative disc disease of the lumbar spine. Mild dextrocurvature of the lumbar spine. LYMPH NODES: No evidence for lymphadenopathy. SOFT TISSUE/ABDOMINAL WALL: Left lower anterior abdominal wall stimulator powerpack device with leads entering the spinal canal at the L2-L3 interspinous space extending superiorly in the spinal canal t erminating at the L1 level. Post surgical changes with anterior right lower abdominal wall diverticul a ileostomy. IMPRESSION: Findings suggestive progression of disease with few increased size mediastinal and bilateral hilar ly mph nodes and suspected new hepatic metastasis. Additional few subcentimeter new pulmonary nodules. P reviously seen FDG avid pulmonary nodules are relatively stable in size. Stable dominant hepatic meta stasis. [facility], , 02/28/2025 1:56 PM
== END | disposition home or self-care (01) ==
LOC: RADCTMAIN 10:08
PROVIDERS: ATTEND Internal Medicine Hematology & Oncology
DX: C78.7 Secondary malignant neoplasm of liver and intrahepatic bile duct (principal); C80.1 Malignant (primary) neoplasm, unspecified; R91.8 Other nonspecific abnormal finding of lung field
CPT/HCPCS: 82565; 84520; 71260; 74177; 36415; Q9967